=== PATIENT | female | born 1960 | race Caucasian/White ===

== ENCOUNTER → 2017-01-30 | Outpatient (CLI) | payer BC, OTHER ==
[~2017-01-30] MED LIST: ASPI81TA21 PO; ATOR80TA PO; CLOP1TAB15 PO; HYDR25TA4 PO; LISI-729 PO; METFTAB2 PO; METO50TA7 PO; SALI0.6510 INH; SERT50TA PO; SPIR1TAB72 PO; SPIR25TA PO; ZNT/150 PO
[2017-01-30 12:24] LABS: ALT/SGPT 30 U/L (12-78); AST/SGOT 9 U/L (15-37); BLOOD UREA NITROGEN 12 mg/dl (7-18); BUN/CREATININE RATIO 16.2 (10-20); CALCIUM 8.9 mg/dl (8.5-10.1); CARBON DIOXIDE 32 mmol/L (21-32); CHLORIDE 100 mmol/L (98-107); CREATININE 0.72 mg/dl (0.60-1.20); GLUCOSE 133 mg/dl (70-99); POTASSIUM 3.7 mmol/L (3.5-5.1); SODIUM 138 mmol/L (136-145)
[2017-01-30 12:42] LABS: ESTIMATED AVERAGE GLUCOSE 174 mg/dl; HA1C FLAG Normal (Normal)
== END | disposition home or self-care (01) ==
LOC: C.LAB1850 10:28
PROVIDERS: ATTEND Internal Medicine
DX: E11.9 Type 2 diabetes mellitus without complications (principal); E78.5 Hyperlipidemia, unspecified

== ENCOUNTER → 2017-06-25 | Day surgery (SDC) | payer BC, OTHER ==
[2017-06-13 13:55] VITALS: Ht 160 cm; Wt 108.6 kg
[~2017-06-25] VITALS: Ht 160 cm; Wt 108.6 kg
[~2017-06-25] MED LIST changes: -HYDR25TA4 PO; +LIDOCAINE HCL 2% 2 ML VIAL (20MG/ML) ONE; +MIDAZOLAM HCL 1 MG/ML 2ML VIAL ONE; +PROPOFOL IV EMULSION 10 MG/ML 20 ML VIAL IV ONE; -SALI0.6510 INH; +SODIUM CHLORIDE 0.9% 500ML 500 ML IV ONE; -SPIR25TA PO
[2017-06-25 08:17] VITALS: TEMP 36.5
--- NOTE | 2017-06-25 08:31 | Endo History and Physical ---
History & Physical Date of Service: Jun 25, 2017. Chief Complaint: history of polyps Referring Physician: Dr.Jeffrey Giraldo History of Present Illness 56 yo CF who presents for colonoscopy secondary to history of colon polyps. Past Surgical History Hx Cardiac Surgery: Yes (HEART CATH, STENT X1) Hx Internal Defibrillator: No Hx Pacemaker: No Hx Abdominal Surgery: Yes (, LOBITO BSO) Hx of Implantable Prosthesis: No Hx Post-Op Nausea and Vomiting: No Hx Cancer Surgery: No Hx Thoracic Surgery: No Hx Orthopedic: No Hx Urinary Tract Surgery: No Family History Colon CA Social History Smoking Status: Former Smoker Hx Substance Use: No Hx Alcohol Use: Yes (SOCIAL) Allergies Coded Allergies: No Known Allergies (Verified , 06/13/17) Current Medications Reported Home Medications Medications Dose Route/Sig Max Daily Dose Days Date Category Spironolactone/Hydrochlor 25-25 mg (HCTZ/Spironolactone) 1 Ea Tab 1 Tab PO QAM 06/13/17 Reported Zoloft (Sertraline HCl) 50 Mg Tab 50 Mg PO QAM 06/13/17 Reported Zestril (Lisinopril) 5 Mg Tab 5 Mg PO QAM 06/13/17 Reported Plavix (Clopidogrel Bisulfate) 75 Mg Tab 75 Mg PO QAM 06/13/17 Reported Zantac (Ranitidine Hcl) 150 Mg Tab 150 Mg PO BID PRN 09/30/12 Reported Ecotrin Or Generic (Aspirin) 81 Mg Tab 81 Mg PO QPM 09/30/12 Reported Toprol-Xl (Metoprolol Succinate) 50 Mg Tabcr 50 Mg PO QAM 09/30/12 Reported Glucophage Ext Rel (Metformin HCl) 750 Mg Tab 750 Mg PO BID 09/30/12 Reported Lipitor (Atorvastatin Calcium) 80 Mg Tab 80 Mg PO QPM 09/30/12 Reported Vital Signs Weight (Kilograms): 108.64 Height (Feet): 5 Height (Inches): 3 Date Time Temp Pulse Resp B/P (MAP) Pulse Ox O2 Delivery O2 Flow Rate FiO2 06/25/17 08:17 36.5 74 18 131/91 (104) 99 Room Air Physical Exam General Appearance: WD/WN, no apparent distress Respiratory/Chest: Auscultation: breath sounds normal Cardiovascular: Heart Auscultation: RRR Abdomen: Bowel Sounds: normal Inspection & Palpation: soft, non-distended, no tenderness, guarding & rebound Assessment and Plan Assessment: 56 yo CF who presents for colonoscopy secondary to history of colon polyps. Plan: Proceed with colonoscopy.
--- NOTE | 2017-06-25 09:10 | Discharge Instructions ---
Endoscopy Patient Instructions Date / Procedure(s) Performed Jun 25, 2017. Colonoscopy Allergy Information Coded Allergies: No Known Allergies (Verified , 06/13/17) Discharge Date / Findings Jun 25, 2017. Diverticulosis Medication Instructions Stopped Medication(s): stopped Plavix 06/16,ASA 06/21,last dose Metformin Saturday OK to resume all medications today as prescribed Reported Home Medications Medications Dose Route/Sig Max Daily Dose Days Date Category Spironolactone/Hydrochlor 25-25 mg (HCTZ/Spironolactone) 1 Ea Tab 1 Tab PO QAM 06/13/17 Reported Zoloft (Sertraline HCl) 50 Mg Tab 50 Mg PO QAM 06/13/17 Reported Zestril (Lisinopril) 5 Mg Tab 5 Mg PO QAM 06/13/17 Reported Plavix (Clopidogrel Bisulfate) 75 Mg Tab 75 Mg PO QAM 06/13/17 Reported Zantac (Ranitidine Hcl) 150 Mg Tab 150 Mg PO BID PRN 09/30/12 Reported Ecotrin Or Generic (Aspirin) 81 Mg Tab 81 Mg PO QPM 09/30/12 Reported Toprol-Xl (Metoprolol Succinate) 50 Mg Tabcr 50 Mg PO QAM 09/30/12 Reported Glucophage Ext Rel (Metformin HCl) 750 Mg Tab 750 Mg PO BID 09/30/12 Reported Lipitor (Atorvastatin Calcium) 80 Mg Tab 80 Mg PO QPM 09/30/12 Reported Provider Instructions Activity Restrictions - No exercising or heavy lifting for 24 hours. - Do not drink alcohol the day of the procedure. - Do not drive a car or operate machinery until the day after the procedure. - Do not make any important decisions or sign important papers in 24 hours after the procedure. Following Day: - Return to full activity which may include returning to work/school. Diet Start your diet with liquids and light foods (jello, soup, juice, toast). Then eat your usual diet if not nauseated. Treatment For Common After Affects For mild abdominal pain, bloating, or excessive gas: - Rest - Eat lightly - Lie on right side Follow-Up Information Follow-up with Dr.Jeffrey Giraldo as scheduled Anesthesia Information What You Should Know You have had a procedure that required some medicine to reduce anxiety and discomfort. This treatment is called moderate sedation. After receiving the treatment, you may be sleepy, but you will be able to breathe on your own. The effects of the treatment may last for several hours. Follow these instructions along with Activity/Diet recommendations noted above: * Do NOT do anything where dizziness or clumsiness would be dangerous. * Rest quietly at home today, then you can be up and about tomorrow. * Have a responsible person stay with you the rest of today. * You may have had an I.V. today. If so, you may take the dressing off later today. Recommendations Call your doctor if: * Trouble breathing * Continuous vomiting for more than 24 hours * Temperature above 101 degrees * Severe abdominal pain or bloating * Pain not relieved by pain medicine ordered * There is increased drainage or redness from any incision * A large amount of rectal bleeding greater than 2-3 tablespoons. (If you had a polyp/s removed or have hemorrhoids, a small amount of blood - from the rectum is to be expected.) * You have any unanswered questions or concerns. IN THE EVENT OF A SERIOUS EMERGENCY, GO TO THE NEAREST EMERGENCY ROOM Your discharge instructions were prepared by provider Wilmer Francois. Patient Instructions Signature Page Hilda [place] Patient (or Guardian) Signature/Date: I have read and understand the instructions given to me by my caregivers. Caregiver/RN/Doctor Signature/Date: The above-named patient and/or guardian has received patient instructions on this date. + Original Patient Signature Page (only) stays with chart. Please make copy for patient.
--- NOTE | 2017-06-25 09:24 | Anesthesiology Progress Note ---
Anesthesia Post Op Note Date & Time Jun 25, 2017 at 09:24 Vital Signs Pain Intensity: 0 Vital Signs Past 12 Hours Date Time Temp Pulse Resp B/P (MAP) Pulse Ox O2 Delivery O2 Flow Rate FiO2 06/25/17 09:12 75 16 107/79 (88) 97 Room Air 06/25/17 08:58 81 12 120/88 (99) 100 Room Air 06/25/17 08:17 36.5 74 18 131/91 (104) 99 Room Air Notes Mental Status: alert / awake / arousable, participated in evaluation Pt Amnestic to Procedure: Yes Nausea / Vomiting: adequately controlled Pain: adequately controlled Airway Patency, RR, SpO2: stable & adequate BP & HR: stable & adequate Hydration State: stable & adequate Anesthetic Complications: no major complications apparent
[2017-06-25 09:28] VITALS: BP 110/74; PULSE 73; O2SAT 97
--- NOTE | 2017-06-25 09:47 | GI REPORT ---
Procedure Date: 06/25/2017 8:12 AM Procedure: Colonoscopy Indications: High risk colon cancer surveillance: Personal history of colonic polyps, Family history of colon cancer Medicines: Monitored Anesthesia Care Complications: No immediate complications. Estimated Blood Loss: Estimated blood loss: none. Procedure: Pre-Anesthesia Assessment: - Prior to the procedure, a History and Physical was performed, and patient medications and allergies were reviewed. The patient's tolerance of previous anesthesia was also reviewed. The risks and benefits of the procedure and the sedation options and risks were discussed with the patient. All questions were answered, and informed consent was obtained. Prior Anticoagulants: The patient last took aspirin 3 days and Plavix (clopidogrel) 4 days prior to the procedure. ASA Grade Assessment: III - A patient with severe systemic disease. After reviewing the risks and benefits, the patient was deemed in satisfactory condition to undergo the procedure. After I obtained informed consent, the scope was passed under direct vision. Throughout the procedure, the patient's blood pressure, pulse, and oxygen saturations were monitored continuously. The Scope was introduced through the anus and advanced to the terminal ileum. The colonoscopy was performed without difficulty. The patient tolerated the procedure well. The quality of the bowel preparation was good. The terminal ileum, ileocecal valve, appendiceal orifice, and rectum were photographed. Findings: Multiple small-mouthed diverticula were found in the sigmoid colon. The exam was otherwise without abnormality. Impression: - Diverticulosis in the sigmoid colon. - The examination was otherwise normal. - No specimens collected. Recommendation: - Resume previous diet. - Continue present medications. - Repeat colonoscopy in 5 years for surveillance. - Return to primary care physician as previously scheduled. Wilmer Francois DO 06/25/2017 9:26:14 AM This report has been signed electronically. Note Initiated On: 06/25/2017 8:12 AM I attest to the content of the Intraoperative Record and orders documented therein, exceptions below
== END | disposition home or self-care (01) ==
LOC: C.GI 07:59
PROVIDERS: ATTEND Internal Medicine
DX: Z12.11 Encounter for screening for malignant neoplasm of colon (principal); K57.30 Diverticulosis of large intestine without perforation or abscess without bleeding; Z86.010 Personal history of colon polyps; Z80.0 Family history of malignant neoplasm of digestive organs; Z87.891 Personal history of nicotine dependence; Z79.02 Long term (current) use of antithrombotics/antiplatelets; Z79.899 Other long term (current) drug therapy

== ENCOUNTER → 2017-08-02 | Outpatient (CLI) | payer BC, OTHER ==
[~2017-08-02] MED LIST changes: -LIDOCAINE HCL 2% 2 ML VIAL (20MG/ML) ONE; -MIDAZOLAM HCL 1 MG/ML 2ML VIAL ONE; -PROPOFOL IV EMULSION 10 MG/ML 20 ML VIAL IV ONE; -SODIUM CHLORIDE 0.9% 500ML 500 ML IV ONE
--- NOTE | 2017-08-02 16:09 | MAMMOGRAPHY REPORT ---
BILATERAL DIGITAL SCREENING MAMMOGRAM TOMOSYNTHESIS WITH CAD: 08/02/2017 CLINICAL HISTORY: Routine screening. Patient has no complaints. TECHNIQUE: Breast tomosynthesis in addition to standard 2D mammography was performed. Current study was also evaluated with a Computer Aided Detection (CAD) system. COMPARISON: Comparison is made to exams dated: 08/01/2016 mammogram, 07/08/2015 mammogram, 07/07/2014 m ammogram, 05/18/2013 mammogram, 05/01/2012 mammogram, and 04/25/2011 mammogram - [facility]. BREAST COMPOSITION: There are scattered areas of fibroglandular density in both breasts. FINDINGS: No suspicious masses, calcifications, or areas of architectural distortion are noted in ei ther breast. There has been no significant interval change compared to prior exams. IMPRESSION: ACR BI-RADS CATEGORY 1: NEGATIVE There is no mammographic evidence of malignancy. A 1 year screening mammogram is recommended. The pa tient will receive written notification of the results. Approximately 10% of breast cancers are not detected with mammography. A negative mammographic report should not delay biopsy if a clinically suggestive mass is present. Halie Sow M.D. /:08/02/2017 15:11:36 Keysmith: Livier Flores [facility] letter sent: Normal 1/2 BI-RADS Code: ACR BI-RADS Category 1: Negative
== END | disposition home or self-care (01) ==
LOC: C.MAMM 14:12
PROVIDERS: ATTEND Internal Medicine
DX: Z12.31 Encounter for screening mammogram for malignant neoplasm of breast (principal)

== ENCOUNTER → 2017-09-15 | Outpatient (CLI) | payer BC, OTHER ==
--- NOTE | 2017-09-15 14:53 | DIAGNOSTIC IMAGING REPORT ---
CHEST 2 VIEWS ROUTINE CLINICAL HISTORY: BILATERAL RALES cough. Dyspnea. COMPARISON STUDY: 04/18/2009 FINDINGS: Parenchymal infiltrate left lung base. Lungs otherwise appear clear. No evidence for cardiac enlargement. Diaphragms smooth. IMPRESSION: Infiltrate left base. The above report was generated using voice recognition software. It may contain grammatical, syntax or spelling errors. Electronically signed by: Wally Shea M.D. 09/15/2017 2:51 PM Dictated Date/Time: 09/15/2017 2:51 PM
== END | disposition home or self-care (01) ==
LOC: C.RAD 14:36
PROVIDERS: ATTEND Family Medicine
DX: R09.89 Other specified symptoms and signs involving the circulatory and respiratory systems (principal)

== ENCOUNTER 2021-06-26 06:47 | Inpatient (IN) ==
--- NOTE | 2021-06-26 07:10 | Emergency Department Note ---
History of Present Illness General Chief complaint: Facial Injury/Pain Stated complaint: FACIAL SWELLING,VOMITING Time Seen by Provider: 06/26/21 07:00 History of Present Illness Maximum Pain Intensity: 7 This is a 60-year-old female that presents to the emergency department via private vehicle with complaints of "facial swelling/pain, vomiting". Patient states that this past she underwent right posterior inferior molar region root canal by Dr. Ambrocio in [facility]. Patient notes that once the local anesthetic began to wear off her pain sharply increased. Pain then increased into this past Saturday. She did take some pain medication that was she was previously prescribed and notes some pain relief with this. Then she notes that she felt a lump in the right cheek starting Saturday. Saturday morning the swelling worsened and has progressed with some more redness, swelling, pain and now vomiting this morning. She last ate food around 12:30 PM yesterday. She notes a history of type 2 diabetes as well as coronary artery stent placement currently on Eliquis as well as recent cardiac ablation. Patient rates current pain is a 7/10. She respectfully declines pain medication at this time. She denies any current nausea and is feeling a bit better. Emma kriss notes that she currently is on penicillin that was prescribed to her yesterday at an urgent care for this suspected infection. She had a dose yesterday and attempted to take a dose today but notes that she then vomited. She is prescribed penicillin, 500 mg p.o. twice daily. Home Medications Medication Instructions Recorded Confirmed Type ascorbic acid (vitamin C) 500 mg 500 mg PO QAM tab 05/25/20 06/26/21 History tablet aspirin 81 mg tablet,delayed 81 mg PO HS 11/17/20 06/26/21 History release atorvastatin 80 mg tablet 80 mg PO HS 11/17/20 06/26/21 History cholecalciferol (vitamin D3) 25 50 mcg PO HS 11/17/20 06/26/21 History mcg (1,000 unit) capsule (Vitamin D3) magnesium oxide 400 mg PO HS 11/17/20 06/26/21 History amiodarone 200 mg tablet 200 mg PO DAILY #90 tab 12/07/20 06/26/21 Rx lisinopril 5 mg tablet 5 mg PO DAILY PRN 01/05/21 06/26/21 History metoprolol succinate 100 mg 100 mg PO BID #180 tab 02/07/21 06/26/21 Rx tablet,extended release 24 hr apixaban 5 mg tablet (Eliquis) 5 mg PO BID #60 tab 06/13/21 06/26/21 Rx spironolactone 25 1 tab PO QAM #90 tab 06/13/21 06/26/21 Rx mg-hydrochlorothiazide 25 mg tablet sertraline 50 mg tablet 100 mg PO .COMPLEX #180 tab 06/19/21 06/26/21 Rx dulaglutide 1.5 mg/0.5 mL 1.5 mg SUBCUT SA 06/26/21 06/26/21 History subcutaneous pen injector (Trulicity) vitamin A acetate 10,000 unit 10,000 unit PO HS 06/26/21 06/26/21 History sublingual tablet zinc acetate 50 mg (zinc) capsule 50 mg PO HS 06/26/21 06/26/21 History Allergies Allergy/AdvReac Type Severity Reaction Status Date / Time No Known Drug Allergies Allergy Verified 06/26/21 07:29 Past Med/Surg History Medical History (Updated 06/26/21 @ 11:55 by Julian El MD) Atherosclerosis of [place] coronary artery without angina pectoris Benign colonic polyp Diverticulosis Hyperlipidemia Hypertension Type 2 diabetes mellitus Surgical History H/O: section H/O: hysterectomy History of coronary artery stent placement Family History Mother Myocardial infarction Diabetes Hypertension Kidney disease Uncle Colon cancer Father Cerebral aneurysm Other Benign adenomatous polyp of large intestine Denies family history of Ovarian cancer Prostate cancer Breast cancer Social History Smoking Status: Never smoker Tobacco Type: Cigarettes Age Started Using Tobacco: 33; Age Quit Using Tobacco: 49; Years Smoked: 16; Cigarettes Per Day: 15; Number of Years Since Quit: 11; Second Hand Exposure: No; Hx Alcohol Use: Yes Hx Substance Use: No marital status: Current Living Situation: Spouse current occupational status: employed Feels Safe at Home: Yes Childhood Exposure to Second-Hand Smoke: Yes Dental Care, Regularly: Yes Physical Activity Frequency: Does not Exercise Seatbelt Use: always Sunscreen Use: Yes Review of Systems A total of 10 systems reviewed and were otherwise negative Physical Exam Vital Signs Vital Signs - 24 hr 06/26/21 06:51 06/26/21 08:34 06/26/21 09:46 Temperature 37 C Temperature Source Temporal Artery Scan Pulse Rate 65 Pulse Rate [Finger] 66 62 Respiratory Rate 16 18 18 Blood Pressure 125/64 Blood Pressure [Left Arm] 126/64 105/45 L Blood Pressure Mean 84 Blood Pressure Mean [Left Arm] 84 65 Pulse Oximetry 97 95 94 Oxygen Delivery Method Room Air Room Air Sepsis Recent Fever Within 48 Hours No Sepsis New/Unexplained Change in Mental Status No Sepsis Action Taken by Nursing No Action Required 06/26/21 11:16 Temperature Temperature Source Pulse Rate Pulse Rate [Finger] 70 Respiratory Rate 18 Blood Pressure Blood Pressure [Left Arm] 108/83 Blood Pressure Mean Blood Pressure Mean [Left Arm] 91 Pulse Oximetry 97 Oxygen Delivery Method Room Air Sepsis Recent Fever Within 48 Hours Sepsis New/Unexplained Change in Mental Status Sepsis Action Taken by Nursing VITAL SIGNS - Vital signs and nursing notes were reviewed. Stable and afebrile. GENERAL - 60-year-old female appearing her stated age who is in no acute distress. Communicates well with provider and answers questions appropriately. SKIN -there is mild erythema noted overlying the right lower facial region overlying the chin with surrounding edema. HEAD - NC/AT. EYES - PERRL with EOMI bilaterally. Sclera anicteric. EARS - No deformities of external structures noted on gross examination bilat erally. No pain elicited with palpation of the tragus bilaterally. External auditory canals without discharge or otorrhea. Tympanic membranes pearly ruiz without retraction or bulging. No fluid or purulent material visualized behind the TM. Handle of malleus, umbo, cone of light, pars tensa/flaccid all easily visualized. NOSE - Midline and without cyanosis. No epistaxis or purulent drainage noted. Septum midline without deviation or septal hematoma noted. MOUTH/OROPHARYNX - Without perioral cyanosis. Buccal mucosa pink and moist and without leukoplakia. Tongue midline with equal elevation of palate bilaterally. No tonsillar hypertrophy, erythema, or exudates noted. Good dentition noted. Tooth #31 reveals recent filling placement, no drainage. NECK - Neck with FROM. Supple to palpation. No lymphadenopathy noted. No nuchal rigidity. LUNGS - Chest wall symmetric without accessory muscle use, intercostals retractions, or central cyanosis. Normal vesicular breath sounds CTA B/L. No wheezes, rales, or rhonchi appreciated. CARDIAC - RRR with S1/S2. No murmur, rubs, or gallops appreciated. EXTREMITIES - No clubbing or peripheral cyanosis. NEUROLOGIC - Cranial nerves II through XII grossly intact. PSYCH - A&O, and cooperates fully with examiner. Pt is very pleasant and interacts well with examiner. Course Administered Medications Ampicillin Sodium/Sulbactam Sodium 3,000 mg/ Sodium Chloride 108 mls @ 200 mls/hr IV Q6H ALEXX; Protocol Stop: 07/03/21 12:08 Last Admin: 06/26/21 12:50 Dose: Not Given Documented by: [id number] Morphine Sulfate (Morphine Sulfate 4 Mg/Ml 1 Ml Carp\\Vial) 4 mg IV Q30M PRN PRN Reason: Pain Stop: 07/10/21 11:28 Last Admin: 06/26/21 12:54 Dose: 4 mg Documented by: [id number] Admin: 06/26/21 11:37 Dose: 4 mg Documented by: [id number] Discontinued Medications Heparin Sodium/Dextrose (Heparin Iv Adult Wt-Based Standard *No* Bolus Protocol) 1 ea N/A NOW STA; Protocol Stop: 06/26/21 12:10 Last Admin: 06/26/21 12:47 Dose: Not Given Documented by: [id number] Heparin Sodium/Dextrose (Heparin 86819 Unit/500 Ml D5w) Confirm Administered Dose 25,000 units IV .STK-MED ONE Stop: 06/26/21 12:40 Last Admin: 06/26/21 12:46 Dose: 1,350 units Documented by: [id number] Cosigned by: [id number] Sodium Chloride (Nss 1000ml) 500 mls @ 999 mls/hr IV .Q31M ONE Stop: 06/26/21 09:31 Last Infusion: 06/26/21 09:47 Dose: 0 mls/hr Documented by: [id number] Admin: 06/26/21 09:23 Dose: 999 mls/hr Documented by: [id number] Ampicillin Sodium/Sulbactam Sodium 3,000 mg/ Sodium Chloride 108 mls @ 200 mls/hr IV NOW STA; Protocol Stop: 06/26/21 11:20 Last Infusion: 06/26/21 11:39 Dose: 0 mls/hr Documented by: [id number] Admin: 06/26/21 11:15 Dose: 200 mls/hr Documented by: [id number] Ioversol (Optiray 320 100ml) 94 ml IV ONCE ONE Stop: 06/26/21 08:04 Last Admin: 06/26/21 08:04 Dose: 94 ml Documented by: [id number] Morphine Sulfate (Morphine Sulfate 4 Mg/Ml 1 Ml Carp\\Vial) 4 mg IV NOW STA Stop: 06/26/21 09:00 Last Admin: 06/26/21 09:23 Dose: 4 mg Documented by: [id number] Ondansetron HCl (Ondansetron Inj 2 Mg/Ml 2 Ml Vial) 4 mg IV NOW STA Stop: 06/26/21 09:00 Last Admin: 06/26/21 09:23 Dose: 4 mg Documented by: [id number] Medical Decision Making Laboratory Data Result diagrams: 06/26/21 07:30 06/26/21 07:30 Lab Results 06/26/21 06/26/21 06/26/21 Range/Units 07:30 07:30 11:16 WBC 11.05 H (4.8-10.8) K/uL RBC 4.00 L (4.2-5.4) M/uL Hgb 12.9 (12.0-16.0) g/dL Hct 38.3 (37-47) % MCV 95.8 (80-100) fL MCH 32.3 (25-34) pg MCHC 33.7 (32-36) g/dL RDW Std Deviation 42.3 (36.4-46.3) fL RDW Coeff of Jeyson 12.0 (11.5-14.5) % Plt Count 239 (130-400) K/uL MPV 11.8 H (7.4-10.4) fL Immature Gran % (Auto) 0.2 % Neut % (Auto) 77.9 % Lymph % (Auto) 14.0 % [place] % (Auto) 7.6 % Eos % (Auto) 0.3 % Baso % (Auto) 0.0 % Neut # (Auto) 8.61 H (1.4-6.5) K/uL Lymph # (Auto) 1.55 (1.2-3.4) K/uL [place] # (Auto) 0.84 H (0.11-0.59) K/uL Eos # (Auto) 0.03 (0-0.5) K/uL Baso # (Auto) 0.00 (0-0.2) K/uL Immature Gran # (Auto) 0.02 (0.00-0.02) K/uL Sodium 134 L (136-145) mmol/L Potassium 4.5 (3.5-5.1) mmol/L Chloride 101 (98-107) mmol/L Carbon Dioxide 27 (21-32) mmol/L Anion Gap 7.0 (3-11) BUN 18 (7-18) mg/dl Creatinine 1.05 (0.6-1.2) mg/dl Est Cr Clr Drug Dosing 68.4 ml/min Est GFR ( Amer) 67.3 ml/min Est GFR (Non-Af Amer) 58.1 ml/min BUN/Creatinine Ratio 17.5 (10-20) Glucose 190 H (70-99) mg/dl Calcium 9.1 (8.5-10.1) mg/dl Total Bilirubin 0.5 (0.2-1) mg/dl AST 25 (15-37) U/L ALT 41 (12-78) U/L Alkaline Phosphatase 101 (45-117) U/L Total Protein 7.6 (6.4-8.2) gm/dl Albumin 3.4 (3.4-5.0) gm/dl Globulin 4.2 H (2.5-4.0) gm/dl Albumin/Globulin Ratio 0.8 L (0.9-2) COVID-19 Eval Order Covid19 at [facility] SARS-CoV-2 (PCR) (Negative) 06/26/21 Range/Units 11:16 WBC (4.8-10.8) K/uL RBC (4.2-5.4) M/uL Hgb (12.0-16.0) g/dL Hct (37-47) % MCV (80-100) fL MCH (25-34) pg MCHC (32-36) g/dL RDW Std Deviation (36.4-46.3) fL RDW Coeff of Jeyson (11.5-14.5) % Plt Count (130-400) K/uL MPV (7.4-10.4) fL Immature Gran % (Auto) % Neut % (Auto) % Lymph % (Auto) % [place] % (Auto) % Eos % (Auto) % Baso % (Auto) % Neut # (Auto) (1.4-6.5) K/uL Lymph # (Auto) (1.2-3.4) K/uL [place] # (Auto) (0.11-0.59) K/uL Eos # (Auto) (0-0.5) K/uL Baso # (Auto) (0-0.2) K/uL Immature Gran # (Auto) (0.00-0.02) K/uL Sodium (136-145) mmol/L Potassium (3.5-5.1) mmol/L Chloride (98-107) mmol/L Carbon Dioxide (21-32) mmol/L Anion Gap (3-11) BUN (7-18) mg/dl Creatinine (0.6-1.2) mg/dl Est Cr Clr Drug Dosing ml/min Est GFR ( Amer) ml/min Est GFR (Non-Af Amer) ml/min BUN/Creatinine Ratio (10-20) Glucose (70-99) mg/dl Calcium (8.5-10.1) mg/dl Total Bilirubin (0.2-1) mg/dl AST (15-37) U/L ALT (12-78) U/L Alkaline Phosphatase (45-117) U/L Total Protein (6.4-8.2) gm/dl Albumin (3.4-5.0) gm/dl Globulin (2.5-4.0) gm/dl Albumin/Globulin Ratio (0.9-2) COVID-19 Eval Order SARS-CoV-2 (PCR) NEGATIVE (Negative) Imaging Data Radiologist's Impression: Soft Tissue Neck CT 06/26/21 07:08 CT soft tissue neck w con CT DOSE: 555.81 mGy.cm CLINICAL HISTORY: Root canal day, now facial edema, erythema TECHNIQUE: Helical images were acquired during intravenous administration of cc of Optiray. A dose lowering technique was utilized adhering to the principles of ALARA. COMPARISON STUDY: None. FINDINGS: The visualized portions of the lung apices are unremarkable. Normal-sized thyroid gland. Few areas of minimally decreased attenuation is seen within inferior aspect of the right and left thyroid lobe, largest is measuring 7 mm in size and seen on the right. No salivary gland masses are visualized. Multiple cervical lymph nodes are seen, not significantly enlarged. There is mild asymmetrical soft tissue edema is seen overlying right aspect of the mandible with focal area of enhancement (3/195) which might represent developing abscess. There is no evidence of airway compromise. Prominent lingular tonsil is seen. There are multiple screws which seen at the right and left lateral aspect of the mandible. Beam hardening artifact from dental implants are seen bilaterally which limits evaluation. There is metallic density within the anatomical region of the first molar tooth of the right maxilla which is extending to the right maxillary sinus. Almost complete opacification of the right maxillary sinus is seen. There is also thickening and irregularity of the anterior and lateral wall of the right maxillary sinus. IMPRESSION: 1. There is diffuse edema of the soft tissue overlying right aspect of the mandible with focal area of enhancement which could represent abscess formation. 2. Metallic dental hardware within right maxillary first molar which is extending to the right maxillary sinus and associated with its incomplete opacification. Deformity of anterior and lateral wall of the right maxillary sinus also associated with osseous remodeling might represent sequela from prior fracture and chronic sinusitis. Please correlate above-mentioned findings with prior history. ACT 112: Negative or not required by law. The above report was generated using voice recognition software. It may contain grammatical, syntax or spelling errors. Electronically signed by: Imelda Browning DO 06/26/2021 9:05 AM MDM Narrative Patient was seen and evaluated as above in room C06. Review was performed of nursing notes and vital signs. I did review pertinent previous visits and patient history. After obtaining a thorough history and physical examination the above work up was performed. Patient presents to us today status post dental procedure that occurred this now with right-sided facial swelling, pain, redness and began with vomiting this morning. She was seen at an urgent care yesterday and started on penicillin. She notes this is 500 mg p.o. twice daily. First dose yesterday. She tried taking a dose this morning but vomited this back up. On presentation the patient clinically does appear overall well but does certainly have edema and erythema noted to the right inferior facial region/right cheek that extends into the neck. Vital signs stable. She is afebrile. She was offered analgesics and respectfully declined on arrival. No current nausea. Options of care were discussed with the patient. IV access was established. Labs were drawn. I discussed benefit versus risk of CT scan with the patient. Through shared decision making we will proceed. CT scan of the neck was obtained. It is felt that the benefit outweighs the risk. CT scan results as above. There is diffuse edema of the soft tissue overlying the right aspect of the mandible with focal area of enhancement which could represent abscess formation. There is also commend of "Metallic dental hardware within right maxillary first molar which is extending to the right maxillary sinus and as sociated with its incomplete opacification. Deformity of anterior and lateral wall of the right maxillary sinus also associated with osseous remodeling might represent sequela from prior fracture and chronic sinusitis.". Dr. Morgan came to see the patient at bedside. Plan is for admission to medicine service, hold the anticoagulant and then surgery here in the hospital to remove the involved tooth. Patient happy with this plan. Case discussed with the hospitalist. Please refer to further documentation regarding her stay. GCS: 15 In the evaluation and treatment of this patient, the following differential diagnoses were considered: Periapical Abscess, Osteonecrosis of the Jaw, Dental Fracture, Dental Caries, Dalton's Angina, Vincent's Angina, Facial Cellulitis, among others. Impression & Plan Facial edema, Right facial pain, History of recent dental procedure, Emesis Discharge Plan Visit Data Chief Complaint: Facial Injury/Pain Stated Complaint: FACIAL SWELLING,VOMITING ED Provider: Kevin Ji ED Midlevel Provider: Ramírez Morrow Discharge Problem: Facial edema, Right facial pain, History of recent dental procedure, Emesis Patient Disposition: Admitted As Inpatient Condition: Good Discharge Instructions Interventions: ED Discharge Assessment Last Done: 06/26/21 14:54
[2021-06-26 07:40] LABS: Eosinophils # (auto) 0.03 K/uL (0-0.5); Eosinophils % (auto) 0.3 %; Hematocrit (blood only) 38.3 % (37-47); Hemoglobin 12.9 g/dL (12.0-16.0); Immature Granulocytes # (auto) 0.02 K/uL (0.00-0.02); Immature Granulocytes % (auto) 0.2 %; Lymphocytes # (auto) 1.55 K/uL (1.2-3.4); Mean Corpuscular Hemoglobin 32.3 pg (25-34); Mean Corpuscular Hgb Conc 33.7 g/dL (32-36); Mean Corpuscular Volume 95.8 fL (80-100); Mean Platelet Volume 11.8 fL (7.4-10.4); Monocytes # (auto) 0.84 K/uL (0.11-0.59); Monocytes % (auto) 7.6 %; Neutrophils # (auto) 8.61 K/uL (1.4-6.5); Neutrophils % (auto) 77.9 %; Platelet Count 239 K/uL (130-400); RDW Standard Deviation 42.3 fL (36.4-46.3); White Blood Count 11.05 K/uL (4.8-10.8)
[2021-06-26 07:57] LABS: Albumin Level 3.4 gm/dl (3.4-5.0); BUN Creatinine Ratio 17.5 (10-20); Calcium 9.1 mg/dl (8.5-10.1); Creatinine Clr Calc Pharmacy 68.4 ml/min; Est GFR (African American) 67.3 ml/min; Est GFR (Non-African American) 58.1 ml/min; Potassium 4.5 mmol/L (3.5-5.1)
[2021-06-26 08:00] LABS: Albumin Globulin Ratio 0.8 (0.9-2); Bilirubin,Total 0.5 mg/dl (0.2-1); Globulin 4.2 gm/dl (2.5-4.0); Total Protein 7.6 gm/dl (6.4-8.2)
[2021-06-26] MEDS ORDERED: OPTIRAY 320 100ml IV ONE (08:03)
[2021-06-26] MEDS ORDERED: MoRPHine SULFATE 4 MG/ML 1 ML CARP\\VIAL IV STA (08:59)
[2021-06-26] MEDS ORDERED: ONDANSETRON INJ 2 MG/ML 2 ML VIAL IV STA (08:59)
[2021-06-26] MEDS ORDERED: SODIUM CHLORIDE 0.9% 1000ML 500 ML IV ONE (09:01)
--- NOTE | 2021-06-26 09:06 | CT Scan Report ---
CT soft tissue neck w con CT DOSE: 555.81 mGy.cm CLINICAL HISTORY: Root canal day, now facial edema, erythema TECHNIQUE: Helical images were acquired during intravenous administration of cc of Optiray. A dose l owering technique was utilized adhering to the principles of ALARA. COMPARISON STUDY: None. FINDINGS: The visualized portions of the lung apices are unremarkable. Normal-sized thyroid gland. Few areas of minimally decreased attenuation is seen within inferior aspe ct of the right and left thyroid lobe, largest is measuring 7 mm in size and seen on the right. No salivary gland masses are visualized. Multiple cervical lymph nodes are seen, not significantly enlarged. There is mild asymmetrical soft tissue edema is seen overlying right aspect of the mandible with foca l area of enhancement (3/195) which might represent developing abscess. There is no evidence of airway compromise. Prominent lingular tonsil is seen. There are multiple screws which seen at the right and left lateral aspect of the mandible. Beam hardening artifact from dental implants are seen bilaterally which limits evaluation. There is metallic density within the anatomical region of the first molar tooth of the right maxilla which is extending to the right maxillary sinus. Almost complete opacification of the right maxillary sinus is seen. There is also thickening and irregularity of the anterior and lateral wall of the rig ht maxillary sinus. IMPRESSION: 1. There is diffuse edema of the soft tissue overlying right aspect of the mandible with focal area of enhancement which could represent abscess formation. 2. Metallic dental hardware within right maxillary first molar which is extending to the right maxil dorothy sinus and associated with its incomplete opacification. Deformity of anterior and lateral wall o f the right maxillary sinus also associated with osseous remodeling might represent sequela from prio r fracture and chronic sinusitis. Please correlate above-mentioned findings with prior history. ACT 112: Negative or not required by law. The above report was generated using voice recognition software. It may contain grammatical, syntax o r spelling errors. Electronically signed by: Imelda Browning DO 06/26/2021 9:05 AM
[2021-06-26] MEDS ORDERED: AMPICILLIN/SULBACTAM SOD 3,000 MG in 0.9 % SODIUM CHLORIDE 100 ML IV STA (10:48)
--- NOTE | 2021-06-26 11:29 | History & Physical Report ---
Date of Service June 26, 2021 Assessment & Plan (1) Odontogenic infection of jaw: Plan: Hilda North is a 60-year-old female with a past medical history of paroxysmal atrial fibrillation, hypertension, hyperlipidemia who presents with a odontogenic infection of the right lower jaw following root canal of tooth #29. Case has been discussed with Dr. Morgan, patient is being admitted for antibiotic treatment pending source control. Odontogenic infection, right lower jaw Patient with root canal June 22 of tooth #29 and subsequent pain, swelling, and chills CT: There is diffuse edema of the soft tissue overlying right aspect of the mandible with focal area of enhancement which could represent abscess formation. Metallic dental hardware within right maxillary first molar which is extending to the right maxillary sinus and associated with its incomplete opacification. Deformity of anterior and lateral wall of the right maxillary sinus also associated with osseous remodeling might represent sequela from prior fracture and chronic sinusitis. -Unasyn 3 g every 6 hours No signs of airway compromise Dr. Morgan oromaxillofacial surgery consulted, case discussed at time of admission. Anticipate source control with drainage following DOAC hold. On heparin as below while DOAC held for A. fib N.p.o. at midnight, liquid diet at this time Pain control with Tylenol, scaled morphine 2-4 mg every 4 hours as needed (2) Hyperlipidemia: Plan: Continue atorvastatin 80 mg p.o. nightly (3) Hypertension: Plan: Normotensive at time of admission. Home antihypertensives held pending potential surgical intervention Aspirin held x1 pending potential neck abscess drainage (4) Type 2 diabetes mellitus: Plan: Home Trulicity held Last A1c approximately 8% SSI goal 1001 40, correction factor 50, ratio 15 (5) PAF (paroxysmal atrial fibrillation): Plan: Apixaban held pending potential neck abscess drainage Heparin GTT while apixaban held Patient in sinus rhythm at time of assessment, hemodynamically stable (6) DVT prophylaxis: Plan: DVT prophylaxis: On heparin as above Diet: N.p.o. at midnight, liquid diet. NSS 100 cc/h while n.p.o. Dispo: Medical/surgical CODE STATUS: Full code History of Present Illness Chief Complaint: Right jaw pain Primary Care Provider: Natan Giraldo MD Hilda is here for right jaw and neck pain following wisdom tooth extraction. She reports she had root canal of her right lower jaw, tooth #29. The next day she started to feel unwell and Saturday she developed Sat R cheek lump and lip swelling. Went to acute care (couldn't get call back from dentist) and was put on penicillin twice daily. She reports the pain and swelling continue to increase over the weekend and evening. This morning vomiting, and increased pain and presented to the ER. +Chills x1 days, not sure if he has been febrile. Pain at admission 8/10, achy in jaw no radiation without palpation. Denies voice change, difficulty breathing, wheezing. Has not taken any medications this morning, last took Saturday night. Reports she has had an ablation for A. fib which she is in and out of, but believes she is normally with a regular rhythm. Denies other recent illnesses. Case discussed with maxillofacial surgery Dr. Morgan. CT as follows: There is diffuse edema of the soft tissue overlying right aspect of the mandible with focal area of enhancement which could represent abscess formation. Metallic dental hardware within right maxillary first molar which is extending to the right maxillary sinus and associated with its incomplete opacification. Defo rmity of anterior and lateral wall of the right maxillary sinus also associated with osseous remodeling might represent sequela from prior fracture and chronic sinusitis. Medical History: Reviewed Medications: Reviewed Surgical History: Reviewed Allergies: Reviewed Social History: Reviewed Code Status: Full code, discussed with patient with at bedside. Allergies Allergy/AdvReac Type Severity Reaction Status Date / Time No Known Drug Allergies Allergy Verified 06/26/21 07:29 Home Medications Medication Instructions Recorded Confirmed Type ascorbic acid (vitamin C) 500 mg 500 mg PO QAM tab 05/25/20 06/26/21 History tablet aspirin 81 mg tablet,delayed 81 mg PO HS 11/17/20 06/26/21 History release atorvastatin 80 mg tablet 80 mg PO HS 11/17/20 06/26/21 History cholecalciferol (vitamin D3) 25 50 mcg PO HS 11/17/20 06/26/21 History mcg (1,000 unit) capsule (Vitamin D3) magnesium oxide 400 mg PO HS 11/17/20 06/26/21 History amiodarone 200 mg tablet 200 mg PO DAILY #90 tab 12/07/20 06/26/21 Rx lisinopril 5 mg tablet 5 mg PO DAILY PRN 01/05/21 06/26/21 History metoprolol succinate 100 mg 100 mg PO BID #180 tab 02/07/21 06/26/21 Rx tablet,extended release 24 hr apixaban 5 mg tablet (Eliquis) 5 mg PO BID #60 tab 06/13/21 06/26/21 Rx spironolactone 25 1 tab PO QAM #90 tab 06/13/21 06/26/21 Rx mg-hydrochlorothiazide 25 mg tablet sertraline 50 mg tablet 100 mg PO .COMPLEX #180 tab 06/19/21 06/26/21 Rx dulaglutide 1.5 mg/0.5 mL 1.5 mg SUBCUT SA 06/26/21 06/26/21 History subcutaneous pen injector (Trulicity) vitamin A acetate 10,000 unit 10,000 unit PO HS 06/26/21 06/26/21 History sublingual tablet zinc acetate 50 mg (zinc) capsule 50 mg PO HS 06/26/21 06/26/21 History Past Med/Surg History Medical History (Updated 06/26/21 @ 11:55 by Julian El MD) Atherosclerosis of [place] coronary artery without angina pectoris Benign colonic polyp Diverticulosis Hyperlipidemia Hypertension Type 2 diabetes mellitus Surgical History H/O: section H/O: hysterectomy History of coronary artery stent placement Family History Mother Myocardial infarction Diabetes Hypertension Kidney disease Uncle Colon cancer Father Cerebral aneurysm Other Benign adenomatous polyp of large intestine Denies family history of Ovarian cancer Prostate cancer Breast cancer Social History Smoking Status: Never smoker Tobacco Type: Cigarettes Age Started Using Tobacco: 33; Age Quit Using Tobacco: 49; Years Smoked: 16; Cigarettes Per Day: 15; Number of Years Since Quit: 11; Second Hand Exposure: No; Hx Alcohol Use: Yes Hx Substance Use: No marital status: Current Living Situation: Spouse current occupational status: employed Feels Safe at Home: Yes Childhood Exposure to Second-Hand Smoke: Yes Dental Care, Regularly: Yes Physical Activity Frequency: Does not Exercise Seatbelt Use: always Sunscreen Use: Yes Review of Systems Review of Systems: Constitutional: See HPI Eyes: Denies double vision, vision change, eye pain ENT: See HPI Cardiovascular: Denies Chest pain, chest pressure, palpitations, extremity swelling Respiratory: Denies shortness of breath, cough, sputum production, difficulty breathing Gastrointestinal: Denies abdominal pain, nausea, vomiting, constipation, diarrhea Genitourinary: Denies pain with urination, urinary urgency, urinary frequency Musculoskeletal: Denies weakness, muscle aches/pain, joint aches/pain Integumentary:Denies rash, lesions, bruising Neurological: Denies headache, numbness, tingling, focal weakness Physical Exam Physical Exam: General: A&Ox3. NAD. Cooperative. HEENT: Right lower jaw and upper right neck zone 2 tender to palpation with overlying swelling. No maxillary tenderness bilaterally, no swelling at the level of the clavicle bilaterally. Unable to assess clavicular adenopathy. Uvula midline. No overt pus seen from the gumline, right lower gum swelling appreciated. Pulm: CTAB A&P. -wheezes, -rales, -rhonchi. Symmetrical chest rise. No increase work of breathing. No respiratory distress. Cardiac: RRR, -mrg. Radial pulses intact and symmetrical. Abdominal: Nontender, nondistended, soft. BS present. Extremities: [employer] strength, ankle plantarflexion/dorsiflexion, hip flexion 5/5 bilaterally without asymmetry. Radial and PT pulses intact without asymmetry. Sensation to soft touch intact in fingers and toes without asymmetry. Results & Data Results & Data ([facility]) Vital Signs (Past 12 Hours) Vital Signs Temp Pulse Pulse Resp BP BP Pulse Ox 06/26/21 11:16 70 18 108/83 97 06/26/21 09:46 62 18 105/45 L 94 06/26/21 08:34 66 18 126/64 95 06/26/21 06:51 37 C 65 16 125/64 97 Laboratory Results Abnormal lab results 06/26/21 06/26/21 Range/Units 07:30 07:30 WBC 11.05 H (4.8-10.8) K/uL RBC 4.00 L (4.2-5.4) M/uL MPV 11.8 H (7.4-10.4) fL Neut # (Auto) 8.61 H (1.4-6.5) K/uL [place] # (Auto) 0.84 H (0.11-0.59) K/uL Sodium 134 L (136-145) mmol/L Glucose 190 H (70-99) mg/dl Globulin 4.2 H (2.5-4.0) gm/dl Albumin/Globulin Ratio 0.8 L (0.9-2) Diagnostic Findings Soft Tissue Neck CT 06/26/21 07:08 CT soft tissue neck w con CT DOSE: 555.81 mGy.cm CLINICAL HISTORY: Root canal , now facial edema, erythema TECHNIQUE: Helical images were acquired during intravenous administration of cc of Optiray. A dose lowering technique was utilized adhering to the principles of ALARA. COMPARISON STUDY: None. FINDINGS: The visualized portions of the lung apices are unremarkable. Normal-sized thyroid gland. Few areas of minimally decreased attenuation is seen within inferior aspect of the right and left thyroid lobe, largest is measuring 7 mm in size and seen on the right. No salivary gland masses are visualized. Multiple cervical lymph nodes are seen, not significantly enlarged. There is mild asymmetrical soft tissue edema is seen overlying right aspect of the mandible with focal area of enhancement (3/195) which might represent developing abscess. There is no evidence of airway compromise. Prominent lingular tonsil is seen. There are multiple screws which seen at the right and left lateral aspect of the mandible. Beam hardening artifact from dental implants are seen bilaterally which limits evaluation. There is metallic density within the anatomical region of the first molar tooth of the right maxilla which is extending to the right maxillary sinus. Almost complete opacification of the right maxillary sinus is seen. There is also thickening and irregularity of the anterior and lateral wall of the right maxillary sinus. IMPRESSION: 1. There is diffuse edema of the soft tissue overlying right aspect of the mandible with focal area of enhancement which could represent abscess formation. 2. Metallic dental hardware within right maxillary first molar which is extendi ng to the right maxillary sinus and associated with its incomplete opacification. Deformity of anterior and lateral wall of the right maxillary sinus also associated with osseous remodeling might represent sequela from prior fracture and chronic sinusitis. Please correlate above-mentioned findings with prior history. ACT 112: Negative or not required by law. The above report was generated using voice recognition software. It may contain grammatical, syntax or spelling errors. Electronically signed by: Imelda Browning DO 06/26/2021 9:05 AM Medications Administered Home Medications ascorbic acid (vitamin C) 500 mg tablet 500 mg PO QAM tab 05/25/20 [History Confirmed 06/26/21] aspirin 81 mg tablet,delayed release 81 mg PO HS 11/17/20 [History Confirmed 06/26/21] atorvastatin 80 mg tablet 80 mg PO HS 11/17/20 [History Confirmed 06/26/21] cholecalciferol (vitamin D3) 25 mcg (1,000 unit) capsule (Vitamin D3) 50 mcg PO HS 11/17/20 [History Confirmed 06/26/21] magnesium oxide 400 mg PO HS 11/17/20 [History Confirmed 06/26/21] amiodarone 200 mg tablet 200 mg PO DAILY #90 tab 12/07/20 [Rx Confirmed 06/26/21] lisinopril 5 mg tablet 5 mg PO DAILY PRN 01/05/21 [History Confirmed 06/26/21] metoprolol succinate 100 mg tablet,extended release 24 hr 100 mg PO BID #180 tab 02/07/21 [Rx Confirmed 06/26/21] apixaban 5 mg tablet (Eliquis) 5 mg PO BID #60 tab 06/13/21 [Rx Confirmed 06/26/21] spironolactone 25 mg-hydrochlorothiazide 25 mg tablet 1 tab PO QAM #90 tab 06/13/21 [Rx Confirmed 06/26/21] sertraline 50 mg tablet 100 mg PO .COMPLEX #180 tab 06/19/21 [Rx Confirmed 06/26/21] dulaglutide 1.5 mg/0.5 mL subcutaneous pen injector (Trulicity) 1.5 mg SUBCUT SA 06/26/21 [History Confirmed 06/26/21] vitamin A acetate 10,000 unit sublingual tablet 10,000 unit PO HS 06/26/21 [History Confirmed 06/26/21] zinc acetate 50 mg (zinc) capsule 50 mg PO HS 06/26/21 [History Confirmed 06/26/21] Active Medications Morphine Sulfate (Morphine Sulfate 4 Mg/Ml 1 Ml Carp\Vial) 4 mg IV Q30M PRN PRN Reason: Pain Stop: 07/10/21 11:28 Last Admin: 06/26/21 11:37 Dose: 4 mg Documented by: PG Care Time/CCT Total # of Minutes Spent Total Time Spent with Patient: Total time spent is greater than 50% in coordination of care (as documented) at patient's floor/unit and/or counseling patient: Coding Level of Care Code 93988 Initial Inpt Care Lvl 3 Diagnoses Odontogenic infection of jaw M27.2 Hyperlipidemia E78.5 Hypertension I10 Type 2 diabetes mellitus E11.9 PAF (paroxysmal atrial fibrillation) I48.0 DVT prophylaxis Z29.9
[2021-06-26] MEDS: MoRPHine SULFATE 4 MG/ML 1 ML CARP\\VIAL IV PRN ×2 (11:37→12:54)
[2021-06-26] MEDS ORDERED: Heparin IV Adult Wt-Based Standard *NO* Bolus Protocol STA (12:09)
[2021-06-26] MEDS ORDERED: HEPARIN 25000 UNIT/500 ML D5W IV ONE (12:39)
[2021-06-26] MEDS: HEPARIN SODIUM/DEXTROSE 25,000 UNITS/500 ML BAG IV SCH (12:46)
[2021-06-26] MEDS: AMPICILLIN/SULBACTAM SOD 3,000 MG in 0.9 % SODIUM CHLORIDE 100 ML IV SCH ×3 (12:50→22:59)
[2021-06-26] MEDS ORDERED: DEXTROSE 50% 50 ML SYRINGE IV PRN (15:20)
[2021-06-26] MEDS ORDERED: GLUCAGON FOR INJ 1 MG VIAL SQ PRN (15:20)
[2021-06-26] MEDS ORDERED: ONDANSETRON INJ 2 MG/ML 2 ML VIAL IV PRN (15:20)
[2021-06-26] MEDS ORDERED: GLUCOSE 40% GEL 15 GM TUBE PO PRN (15:20)
[2021-06-26] MEDS ORDERED: CARBOHYDRATES FOR HYPOGLYCEMIA PO PRN (15:20)
[2021-06-26] MEDS ORDERED: GLUCOSE 10 TABS/TUBE PO PRN (15:20)
[2021-06-26] MEDS ORDERED: MoRPHine SULFATE 2 MG/ML CARP IV PRN (15:20)
[2021-06-26] MEDS ORDERED: MoRPHine SULFATE 4 MG/ML 1 ML CARP\\VIAL IV PRN (15:20)
[2021-06-26] MEDS: AMIODARONE 200 MG TAB PO SCH (17:12)
[2021-06-26] MEDS: SPIRONOLACTONE/HCTZ 25-25 PO SCH (17:13)
[2021-06-26] MEDS: METOPROLOL SUCC 50MG EXT REL TAB PO SCH ×2 (17:13→20:59)
[2021-06-26] MEDS: SERTRALINE HCL 100 MG TABLET PO SCH (17:13)
[2021-06-26] MEDS: INSULIN ASPART 100 UNITS/ML 3 ML PEN SC SCH ×2 (17:38→21:00)
[2021-06-26] MEDS: ACETAMINOPHEN 325 MG TAB PO PRN (17:45)
[2021-06-26 19:21] LABS: Partial Thromboplastin Time 52.5 Seconds (21.0-31.0)
[2021-06-26] MEDS: ATORVASTATIN 40 MG TAB PO SCH (20:58)
--- NOTE | 2021-06-26 22:01 | Oral/Maxillofacial Consult ---
Date of Consultation June 26, 2021 Oral Maxillofacial Surgery Consult Present Complaint: Hilda is here for right jaw and neck pain following wisdom tooth extraction. She reports she had root canal of her right lower jaw, tooth #29. The next day she started to feel unwell and Saturday she developed Sat R cheek lump and lip swelling. Went to acute care (couldn't get call back from dentist) and was put on penicillin twice daily. She reports the pain and swelling continue to increase over the weekend and evening. This morning vomiting, and increased pain and presented to the ER. +Chills x1 days, not sure if he has been febrile. Pain at admission 8/10, achy in jaw no radiation without palpation. Denies voice change, difficulty breathing, wheezing. Has not taken any medications this morning, last took Saturday night. Reports she has had an ablation for A. fib which she is in and out of, but believes she is normally with a regular rhythm. Denies other recent illnesses. Oral Exam: Gross swelling mucobuccal fold # 29-31 area, root canal # 29 Otherwise good state of dental repair. Submandibular, submental, lateral neck and mucobuccal fold right side Tender # 29 Imaging: There is diffuse edema of the soft tissue overlying right aspect of the mandible with focal area of enhancement which could represent abscess formation. Metallic dental hardware within right maxillary first molar which is extending to the right maxillary sinus and associated with its incomplete opacification. Deformity of anterior and lateral wall of the right maxillary sinus also associated with osseous remodeling might represent sequela from prior fracture and chronic sinusitis. Soft tissue: floor of the mouth, Mucobuccal fold, submandibular/sub mental area --swollen No other pathology or abnormal findings noted. All WNL--tongue, hard/soft palate, posterior pharyngeal area all with in normal limits, Oral Care: Overall oral care is good Occlusion: Class I TMJ exam: No pop, clicking, pain, good ROM, No history of TMJ injury or dysfunction Periodontal exam: Healthy gingival tissue without evidence of periodontal pathology. Noted gross swelling from # 28-31 area Head/Neck exam: no swallowing issues now but Hilda feels her throat is tight Neck is swollen right side as is submental area, FROM slightly limited secondary to swelling right side Able to extend and flex neck with some difficulty, no masses, no abnormalities other then the swelling from infected # 29 , no airway issues, no evidence of sleep apnea. Treatment Plan: Admission for IV meds Need medical clearance for I&D Hold Eliquis for 48 hours I&D Jun 28 2021 at 7:15 in OR for I&D and extraction of # 29 Once medically stable and infection controlled will plan discharge on oral antibiotics. Set up with general anesthesia in hospital due to complexity of the procedure and her cardiac history. I reviewed the treatment plan and consent with the patient and her . Understanding was expressed. Time was given for questions regarding the surgery, risks and post op care. Discussed alternative to treatment--procedure as planned, Do not do surgery Risks discussed: Bleeding, Pain,swelling,infection, dry socket, delayed healing, nerve injury to face,lips,tongue,chin area which could be permanent (rare). TMJ, jaw stiffness, change in bite (rare), ear pain (referred). Sinus problems like fistula or infection. Need to leave a small root fragment in place to avoid injury to nerve or sinus. Home care reviewed: tooth brushing, rinsing, follow up care with Dr Morgan. diet=bduip-ramm-xoic dental. Discussed activity level, driving/work while on Rx pain Meds. Surgery to be set up for June 28 2021 at 7:15 Assessment & Plan (1) Odontogenic infection of jaw: (2) History of recent dental procedure: (3) Facial edema: (4) Right facial pain: (5) Swelling of submandibular region: (6) Infection of submental space: History of Present Illness Attending Physician: Julian El MD Allergies Allergy/AdvReac Type Severity Reaction Status Date / Time No Known Drug Allergies Allergy Verified 06/26/21 07:29 Home Medications Medication Instructions Recorded Confirmed Type ascorbic acid (vitamin C) 500 mg 500 mg PO QAM tab 05/25/20 06/26/21 History tablet aspirin 81 mg tablet,delayed 81 mg PO HS 11/17/20 06/26/21 History release atorvastatin 80 mg tablet 80 mg PO HS 11/17/20 06/26/21 History cholecalciferol (vitamin D3) 25 50 mcg PO HS 11/17/20 06/26/21 History mcg (1,000 unit) capsule (Vitamin D3) magnesium oxide 400 mg PO HS 11/17/20 06/26/21 History amiodarone 200 mg tablet 200 mg PO DAILY #90 tab 12/07/20 06/26/21 Rx lisinopril 5 mg tablet 5 mg PO DAILY PRN 01/05/21 06/26/21 History metoprolol succinate 100 mg 100 mg PO BID #180 tab 02/07/21 06/26/21 Rx tablet,extended release 24 hr apixaban 5 mg tablet (Eliquis) 5 mg PO BID #60 tab 06/13/21 06/26/21 Rx spironolactone 25 1 tab PO QAM #90 tab 06/13/21 06/26/21 Rx mg-hydrochlorothiazide 25 mg tablet sertraline 50 mg tablet 100 mg PO .COMPLEX #180 tab 06/19/21 06/26/21 Rx dulaglutide 1.5 mg/0.5 mL 1.5 mg SUBCUT SA 06/26/21 06/26/21 History subcutaneous pen injector (Trulicity) vitamin A acetate 10,000 unit 10,000 unit PO HS 06/26/21 06/26/21 History sublingual tablet zinc acetate 50 mg (zinc) capsule 50 mg PO HS 06/26/21 06/26/21 History Patient History Medical History (Updated 06/27/21 @ 07:19 by Ezequiel Morgan DMD) Atherosclerosis of [place] coronary artery without angina pectoris Benign colonic polyp Diverticulosis Hyperlipidemia Hypertension Type 2 diabetes mellitus Surgical History H/O: section H/O: hysterectomy History of coronary artery stent placement Family History Mother Myocardial infarction Diabetes Hypertension Kidney disease Uncle Colon cancer Father Cerebral aneurysm Other Benign adenomatous polyp of large intestine Denies family history of Ovarian cancer Prostate cancer Breast cancer Social History Smoking Status: Former smoker Tobacco Type: Cigarettes Age Started Using Tobacco: 33; Age Quit Using Tobacco: 49; Years Smoked: 16; Cigarettes Per Day: 15; Number of Years Since Quit: 11; Second Hand Exposure: No; Do You Dip or Chew Tobacco: No; Tobacco Cessation Education Requested by Patient: No Hx Alcohol Use: Yes Alcohol type: beer Hx Substance Use: No Preferred Language: U[place] Communication Ability: Effective Community Leader Required: No Beliefs That Will Affect Care: None marital status: Current Living Situation: Family current occupational status: employed Other Information That Helps Us Care for You: No Feels Safe at Home: Yes Safety Concerns: Feels Safe At This Time Childhood Exposure to Second-Hand Smoke: Yes Dental Care, Regularly: Yes Physical Activity Frequency: Does not Exercise Seatbelt Use: always Sunscreen Use: Yes Assistive Devices: Glasses Results & Data ([facility]) Vital Signs (Past 12 Hours) Vital Signs Temp Pulse Resp BP Pulse Ox 06/26/21 20:57 72 117/76 06/26/21 15:26 38.3 C H 70 18 129/82 96 06/26/21 14:40 72 18 130/74 94 06/26/21 13:22 68 18 143/94 H 93 06/26/21 12:51 67 18 128/77 93 06/26/21 11:16 70 18 108/83 97 PG Care Time/CCT Total # of Minutes Spent Total Time Spent with Patient: Total time spent is greater than 50% in coordination of care (as documented) at patient's floor/unit and/or counseling patient: Coding Level of Care Code 78883 Inpt Consult Level 3 Diagnoses Odontogenic infection of jaw M27.2 History of recent dental procedure Z98.890 Facial edema R60.0 Right facial pain R51.9 Swelling of submandibular region R22.0; R22.1 Infection of submental space K12.2
[2021-06-27] MEDS: AMPICILLIN/SULBACTAM SOD 3,000 MG in 0.9 % SODIUM CHLORIDE 100 ML IV SCH ×4 (05:29→23:58)
[2021-06-27] MEDS: HEPARIN SODIUM/DEXTROSE 25,000 UNITS/500 ML BAG IV SCH (06:05)
[2021-06-27] MEDS: INSULIN ASPART 100 UNITS/ML 3 ML PEN SC SCH ×5 (07:03→20:47)
[2021-06-27 07:37] LABS: Basophils # (auto) 0.01 K/uL (0-0.2); Basophils % (auto) 0.1 %; Eosinophils # (auto) 0.12 K/uL (0-0.5); Eosinophils % (auto) 1.1 %; Hemoglobin 12.6 g/dL (12.0-16.0); Immature Granulocytes # (auto) 0.03 K/uL (0.00-0.02); Immature Granulocytes % (auto) 0.3 %; Lymphocytes # (auto) 2.59 K/uL (1.2-3.4); Lymphocytes % (auto) 23.3 %; Mean Corpuscular Hemoglobin 31.5 pg (25-34); Mean Corpuscular Hgb Conc 33.2 g/dL (32-36); Mean Platelet Volume 11.4 fL (7.4-10.4); Monocytes # (auto) 1.25 K/uL (0.11-0.59); Monocytes % (auto) 11.3 %; Neutrophils % (auto) 63.9 %; Platelet Count 227 K/uL (130-400); RDW Coefficient of Variation 12.1 % (11.5-14.5)
[2021-06-27 07:56] LABS: Partial Thromboplastin Ratio 2.7
[2021-06-27 08:06] LABS: Partial Thromboplastin Time 71.2 Seconds (21.0-31.0)
--- NOTE | 2021-06-27 08:34 | Oral/Maxillofacial Progress Nt ---
Date of Service June 27, 2021 infection evaluation The infected area is more localized to the mucobuccal fold and submandibular area. Tooth # 29 had a recent root canal and this is the etiology. No drainage is noted. Infection has not yet responded to the IV antibiotics and the I&D is necessary--I will plan this tomorrow in OR at 7:15 with [place] Plan --extraction of # 29, oral and possible extra oral I&D I reviewed the CT scan and it appears the cause is the recent Root Canal of # 29. Hilda had prior orthognathic surgery and the fixation screws are well positioned and look good. NPO 12 midnight Need to stop or manage the Heparin before the surgery tomorrow. Assessment & Plan Admission and Anticipated Discharge Date Admission Date: June 26, 2021 Results & Data ([facility]) Vital Signs (Past 12 Hours) Vital Signs Temp Pulse Resp BP BP Pulse Ox 06/27/21 07:13 36.8 C 61 16 109/70 94 06/26/21 23:34 36.7 C 55 L 16 118/60 93 06/26/21 20:57 72 117/76 PG Care Time/CCT Total # of Minutes Spent Total Time Spent with Patient: Total time spent is greater than 50% in coordination of care (as documented) at patient's floor/unit and/or counseling patient: Coding Level of Care Code 86123 Subseq Hosp Care Lvl 1
[2021-06-27] MEDS: ACETAMINOPHEN 325 MG TAB PO PRN ×3 (08:39→18:15)
[2021-06-27 08:40] LABS: BUN Creatinine Ratio 13.1 (10-20); Calcium 9.2 mg/dl (8.5-10.1); Creatinine Clr Calc Pharmacy 89.7 ml/min; Est GFR (African American) 93.5 ml/min; Est GFR (Non-African American) 80.7 ml/min; Potassium 3.9 mmol/L (3.5-5.1)
[2021-06-27] MEDS: SPIRONOLACTONE/HCTZ 25-25 PO SCH (08:40)
[2021-06-27] MEDS: METOPROLOL SUCC 50MG EXT REL TAB PO SCH ×2 (08:40→20:50)
[2021-06-27] MEDS: SERTRALINE HCL 100 MG TABLET PO SCH (08:40)
[2021-06-27] MEDS: AMIODARONE 200 MG TAB PO SCH (08:40)
--- NOTE | 2021-06-27 09:44 | Hospitalist Progress Note ---
Date of Service June 27, 2021 Assessment & Plan (1) Odontogenic infection of jaw: (2) Chronic anticoagulation: (3) Hyperlipidemia: (4) Hypertension: (5) Type 2 diabetes mellitus: (6) PAF (paroxysmal atrial fibrillation): Plan: Hilda North is a 60-year-old female with a past medical history of paroxysmal atrial fibrillation, hypertension, hyperlipidemia who presents with a odontogenic infection of the right lower jaw following root canal of tooth #29. Case has been discussed with Dr. Morgan, patient is being admitted for antibiotic treatment pending source control. Odontogenic infection, right lower jaw Patient with root canal June 5 of tooth #29 and subsequent pain, swelling, and chills CT: There is diffuse edema of the soft tissue overlying right aspect of the mandible with focal area of enhancement which could represent abscess formation. Metallic dental hardware within right maxillary first molar which is extending to the right maxillary sinus and associated with its incomplete opacification. Deformity of anterior and lateral wall of the right maxillary sinus also associated with osseous remodeling might represent sequela from prior fracture and chronic sinusitis. -Continue Unasyn 3 g every [address] Morgan oromaxillofacial surgery consulted -- I&D scheduled for 8/11 AM On heparin as below while DOAC held for A. fib -- hold heparin at midnight prior to procedure N.p.o. at midnight, liquid diet at this time Pain control with Tylenol, scaled morphine 2-4 mg every 4 hours as needed Hyperlipidemia Continue atorvastatin 80 mg p.o. nightly Hypertension Normotensive at time of admission. Home antihypertensives held pending potential surgical intervention Aspirin held x1 pending potential neck abscess drainage Type 2 diabetes mellitus Home Trulicity held Last A1c approximately 8% SSI goal 1001 40, correction factor 50, ratio 15 PAF (paroxysmal atrial fibrillation) Apixaban held pending potential neck abscess drainage Heparin GTT while apixaban held -- hold heparin at midnight prior to procedure DVT prophylaxis: On heparin as above -- hold at midnight Diet: N.p.o. at midnight, liquid diet. NSS 100 cc/h while n.p.o. Dispo: Medical/surgical CODE STATUS: Full code Admission and Anticipated Discharge Date Admission Date: June 26, 2021 Supervising Physician Co-Signing Physician Notes Patient seen and examined independently of PGY-2 Dr. Hunt. Agree with history, exam findings, assessment and plan of care as outlined. In brief, Ms North is a 60 year old female with history of HTN, HLD, DM, and pAF admitted with an odontogenic infection following a root canal. Continues to have pain and swelling to the right jaw. No fevers. She is able to eat soft foods and avoids chewing on the right side. Vital signs and nursing notes reviewed. Non-toxic appearing. Able to protect her airway. Swelling to the right side of the face. Area is mildly erythematous and tender. Heart with regular rate and rhythm. Labs and imaging reviewed. 1. Odontogenic infectionright lower jaw. Continue Unasyn. Plan for I&D in the OR and tooth extraction with Dr. Morgan. 2. DM. Holding home trulicity. Sliding scale insulin. 3. pAF. Holding home eliquis. On heparin gttwill stop at midnight. 4. HTN. Holding home Lisinopril, metoprolol, spironolactone. 5. Hyponatremia. Likely secondary to decreased oral intake. On IVFs. 6. Obesity. Likely metabolic syndrome. Trulicity will likely help with weight loss efforts as well. Dispo: pending surgical intervention tomorrow. Subjective Patient seen at bedside this AM. Had just seen Dr. Morgan and updated on procedure tomorrow. Patient agrees. Reports tenderness around the infected tooth but otherwise doing well and relatively comfortable. Review of Systems Review of Systems: All systems reviewed & are unremarkable except as noted in Subjective Physical Exam Constitutional: WD/WN, vitals as above Eyes: PERRL, conjunctivae normal, anicteric sclerae ENMT: Swelling in mouth around tooth #29 with purulent appearance Neck: + submandibular swelling (right side) Respiratory: normal respiratory effort, lungs clear to auscultation Cardiovascular: RRR, no murmur, no edema Heart Sounds: normal S1 and normal S2 Skin: no rashes, warm and dry Psychiatric: A+Ox3, euthymic affect Results & Data Results & Data ([facility]) Vital Signs (Past 12 Hours) Vital Signs Temp Pulse Resp BP BP Pulse Ox 06/27/21 07:13 36.8 C 61 16 109/70 94 06/26/21 23:34 36.7 C 55 L 16 118/60 93 Resident Activity Tracking Resident Involvement: Resident Care Provided Care Provided: Adult [facility]
[2021-06-27 14:54] LABS: Partial Thromboplastin Ratio 2.5
[2021-06-27 15:05] LABS: Partial Thromboplastin Time 66.7 Seconds (21.0-31.0)
[2021-06-27] MEDS: ATORVASTATIN 40 MG TAB PO SCH (20:46)
[2021-06-27 22:06] LABS: Partial Thromboplastin Time 27.2 Seconds (21.0-31.0)
[2021-06-27] MEDS: SODIUM CHLORIDE 0.9% 1000ML 1,000 ML IV SCH (23:58)
[2021-06-28] MEDS ORDERED: Nursing to Pharmacy Communication SCH ×2 (05:00→17:30)
[2021-06-28] MEDS: INSULIN ASPART 100 UNITS/ML 3 ML PEN SC SCH ×4 (05:49→20:41)
[2021-06-28] MEDS: AMPICILLIN/SULBACTAM SOD 3,000 MG in 0.9 % SODIUM CHLORIDE 100 ML IV SCH ×4 (05:50→23:57)
[2021-06-28] MEDS ORDERED: ePHEDrine sulfate 50 MG/ML AMP IV PRN (06:23)
[2021-06-28] MEDS ORDERED: ATROPINE SULFATE 0.1 MG/ML 10ML SYR IV PRN (06:23)
[2021-06-28] MEDS ORDERED: ONDANSETRON INJ 2 MG/ML 2 ML VIAL IV PRN (06:23)
[2021-06-28] MEDS ORDERED: HYDROmorphone INJ 1 MG/ML SYRINGE IV PRN (06:23)
[2021-06-28] MEDS ORDERED: fentaNYL citrate 100 MCG/2 ML VIAL IV PRN (06:23)
--- NOTE | 2021-06-28 06:40 | Anesthesiology Consultation ---
Date of Service June 28, 2021 Assessment & Plan (1) Encounter for pre-operative examination: Chart Review Chart Review: Acceptable Risk for Surgery and Patient NOT seen in Pre Admission Testing Consults Requested none History Surgery Operation Date: 06/28/21 07:15 Proposed Procedures p #29 Incision, Drainage and Extraction - Ezequiel Macy Morgan, DMD Height/Weight Height: 5 ft 2 in Weight: 112.4 kg Allergies Allergy/AdvReac Type Severity Reaction Status Date / Time No Known Drug Allergies Allergy Verified 06/26/21 07:29 Medications Home Medications Medication Instructions Recorded Confirmed Last Taken ascorbic acid (vitamin C) 500 mg 500 mg PO QAM tab 05/25/20 06/26/21 06/25/21 tablet aspirin 81 mg tablet,delayed 81 mg PO HS 11/17/20 06/26/21 06/25/21 release atorvastatin 80 mg tablet 80 mg PO HS 11/17/20 06/26/21 06/25/21 cholecalciferol (vitamin D3) 25 50 mcg PO HS 11/17/20 06/26/21 06/25/21 mcg (1,000 unit) capsule (Vitamin D3) magnesium oxide 400 mg PO HS 11/17/20 06/26/21 06/25/21 amiodarone 200 mg tablet 200 mg PO DAILY #90 tab 12/07/20 06/26/21 06/25/21 lisinopril 5 mg tablet 5 mg PO DAILY PRN 01/05/21 06/26/21 06/25/21 metoprolol succinate 100 mg 100 mg PO BID #180 tab 02/07/21 06/26/21 06/25/21 tablet,extended release 24 hr apixaban 5 mg tablet (Eliquis) 5 mg PO BID #60 tab 06/13/21 06/26/21 06/25/21 spironolactone 25 1 tab PO QAM #90 tab 06/13/21 06/26/21 06/25/21 mg-hydrochlorothiazide 25 mg tablet sertraline 50 mg tablet 100 mg PO .COMPLEX #180 tab 06/19/21 06/26/21 06/25/21 dulaglutide 1.5 mg/0.5 mL 1.5 mg SUBCUT SA 06/26/21 06/26/21 06/25/21 subcutaneous [facility] ([facility] vitamin A acetate 10,000 unit 10,000 unit PO HS 06/26/21 06/26/21 06/25/21 sublingual tablet zinc acetate 50 mg (zinc) capsule 50 mg PO HS 06/26/21 06/26/21 06/25/21 Active Medications Generic Name Dose Route Start Last Admin Trade Name Freq PRN Reason Stop Dose Admin Acetaminophen 650 mg 06/26/21 15:20 06/27/21 18:15 Acetaminophen 325 Mg Tab PO 07/26/21 15:19 650 mg Q4H PRN Administration pain/fever Amiodarone HCl 200 mg 06/26/21 15:20 06/27/21 08:40 Amiodarone 200 Mg Tab PO 07/26/21 15:19 200 mg DAILY ALEXX Administration Atorvastatin Calcium 80 mg 06/26/21 21:00 06/27/21 20:46 Atorvastatin 40 Mg Tab PO 07/26/21 20:59 80 mg HS ALEXX Administration HCTZ/Spironolactone 1 tab 06/26/21 15:20 06/27/21 08:40 Spironolactone/Hctz 25-25 PO 07/26/21 15:19 1 tab QAM ALEXX Administration Ampicillin Sodium/Sulbactam 108 mls @ 200 mls/hr 06/26/21 12:09 06/28/21 06:25 Sodium 3,000 mg/ Sodium IV 07/03/21 12:08 Infused Chloride Q6H ALEXX Infusion Protocol Heparin Sodium/Dextrose 25,000 units in 500 mls @ 26 mls/hr 06/26/21 12:46 06/27/21 17:56 Heparin Sodium/Dextrose IV 07/26/21 12:45 0 units/hr .[id number] ALEXX 0 mls/hr Titration Protocol 1,300 UNITS/HR Sodium Chloride 1,000 mls @ 100 mls/hr 06/28/21 00:00 06/28/21 06:25 Nss 1000ml IV 07/28/21 00:00 100 mls/hr .Q10H ALEXX Infusion Insulin Aspart 0 units 06/28/21 06:00 06/28/21 05:49 Insulin Aspart 100 Units/Ml 3 Ml Pen SC 07/28/21 05:59 1 units Q6 ALEXX Administration Metoprolol Succinate 100 mg 06/26/21 15:20 06/27/21 20:50 Metoprolol Succ 50mg Ext Rel Tab PO 07/26/21 15:19 Not Given BID ALEXX Sertraline HCl 100 mg 06/26/21 15:20 06/27/21 08:40 Sertraline Hcl 100 Mg Tablet PO 07/26/21 15:19 100 mg DAILY ALEXX Administration Past Medical History Medical History (Updated 06/28/21 @ 06:39 by Aayush Horne MD) Atherosclerosis of [place] coronary artery without angina pectoris Benign colonic polyp Chronic anticoagulation Diverticulosis Hyperlipidemia Hypertension Odontogenic infection of jaw Swelling of submandibular region Type 2 diabetes mellitus Exercise / Class Metabolic Activity II 4-5 Yardwork/Stairs/Walk up hill Past Family History Family History Mother Myocardial infarction Diabetes Hypertension Kidney disease Uncle Colon cancer Father Cerebral aneurysm Other Benign adenomatous polyp of large intestine Denies family history of Ovarian cancer Prostate cancer Breast cancer Past Surgical History Surgical History H/O: section H/O: hysterectomy History of coronary artery stent placement recent cardiac ablation Past Anesthesia History No Hx of Anesthesia Complications and No Family Hx of Anesthesia Complications History of PONV No Hx of PONV and No Hx of Motion Sickness Social History Smoking Status: Former smoker tobacco type: cigarettes Smoking cigarettes per day: 15 Do You Dip or Chew Tobacco: No Hx Alcohol Use: Yes Alcohol type: beer alcohol intake frequency: holidays/special occasions only Hx Substance Use: No substance use type: does not use Last Used Substance: Unknown Physical Exam Vital Signs Last Vital Signs Temp 36.9 C 06/28/21 06:32 Pulse 63 06/28/21 06:32 Resp 20 06/28/21 06:32 BP 117/74 06/28/21 06:32 Pulse Ox 97 06/28/21 06:32 Testing Laboratory Results 06/27/21 07:22 06/27/21 07:22 APTT 27.2 Seconds (21.0-31.0) 06/27/21 21:25 06/28/21 06/27/21 05:46 20:33 POC Glucose 152 H 146 H Electrocardiogram sr
[2021-06-28] MEDS ORDERED: LIDOCAINE 2% 2 ML VIAL/AMP(20MG/ML) INFIL ONE (06:47)
[2021-06-28] MEDS ORDERED: GLYCOPYRROLATE 0.2 MG/ML VIAL ONE (06:47)
[2021-06-28] MEDS ORDERED: PROPOFOL IV EMULSION 10 MG/ML 20 ML VIAL IV ONE (06:47)
[2021-06-28] MEDS ORDERED: MIDAZOLAM HCL 1 MG/ML 2ML VIAL ONE (06:47)
[2021-06-28] MEDS ORDERED: DEXAMETHASONE SOD INJ 4 MG/ML VIAL ONE (06:47)
[2021-06-28] MEDS ORDERED: ONDANSETRON INJ 2 MG/ML 2 ML VIAL ONE (06:47)
[2021-06-28] MEDS ORDERED: fentaNYL citrate 100 MCG/2 ML VIAL ONE ×2 (06:47→06:48)
[2021-06-28] MEDS ORDERED: NEOSTIGMINE METHYLSULFATE 1 MG/ML 10ML VIAL ONE (06:47)
[2021-06-28] MEDS ORDERED: OXYMETAZOLINE 0.05% 30 ML BTL ONE (07:00)
[2021-06-28] MEDS ORDERED: CHLORHEXIDINE GLUCONATE 0.12% 480 ML ONE (07:06)
[2021-06-28] MEDS ORDERED: BUPIVACAINE/EPINEPHRINE 0.5% 1:200,000 1.8 ML CARP ONE (07:06)
--- NOTE | 2021-06-28 07:15 | History & Physical Bridge Note ---
Date of Service June 28, 2021 History & Physical Bridge Note I have examined the patient, reviewed the History & Physical and in the interval since the performance of the History & Physical I have noted the following changes of clinical significance: no changes notedI will plan I&D intraoral with extraction of # 29
[2021-06-28] MEDS ORDERED: KETOROLAC 30 MG/ML VIAL ONE (07:46)
--- NOTE | 2021-06-28 08:16 | Hospitalist Progress Note ---
Date of Service June 28, 2021 Assessment & Plan (1) Odontogenic infection of jaw: (2) Chronic anticoagulation: (3) Hyperlipidemia: (4) Hypertension: (5) Type 2 diabetes mellitus: (6) PAF (paroxysmal atrial fibrillation): Plan: Hilda North is a 60-year-old female with a past medical history of paroxysmal atrial fibrillation, hypertension, hyperlipidemia who presents with a odontogenic infection of the right lower jaw following root canal of tooth #29. Case has been discussed with Dr. Morgan, patient is being admitted for antibiotic treatment pending source control. Odontogenic infection, right lower jaw Patient with root canal June 5 of tooth #29 and subsequent pain, swelling, and chills CT: There is diffuse edema of the soft tissue overlying right aspect of the mandible with focal area of enhancement which could represent abscess formation. Metallic dental hardware within right maxillary first molar which is extending to the right maxillary sinus and associated with its incomplete opacification. Deformity of anterior and lateral wall of the right maxillary sinus also associated with osseous remodeling might represent sequela from prior fracture and chronic sinusitis. -Continue Unasyn 3 g every 6 hours -- plan to transition to oral on DC Dr. Morgan oromaxillofacial surgery consulted -- I&D performed 8/11 AM - Plan to watch for 24h post-I&D and DC 06/29 on oral abx, likely Augmentin with outpatient f/u Pain control with Tylenol, scaled morphine 2-4 mg every 4 hours as needed Hyperlipidemia Continue atorvastatin 80 mg p.o. nightly Hypertension Normotensive at time of admission. Home antihypertensives held pending potential surgical intervention Aspirin held for I&D Receiving home Toprol XL 100mg PO BID Remains normotensive post-intervention--plan to restart all meds at DC Type 2 diabetes mellitus Home Trulicity held Last A1c approximately 8% SSI goal 1001 40, correction factor 50, ratio 15 PAF (paroxysmal atrial fibrillation) Apixaban held prior to surgical procedure -- continue to hold for 24 hours after surgery, restart at DC Heparin GTT stopped prior to procedure as well -- plan to restart home apixaban as above Continue home Toprol XL 100mg PO BID DVT prophylaxis: SCDs Diet: DM2, easy to chew diet Dispo: Medical/surgical CODE STATUS: Full code Admission and Anticipated Discharge Date Admission Date: June 26, 2021 Supervising Physician Co-Signing Physician Notes Patient seen and examined with PGY-2 Dr. Hunt. Agree with history, exam findings, assessment and plan of care as outlined. In brief, Ms North is a 60 year old female with history of HTN, HLD, DM, and pAF admitted with an odontogenic infection following a root canal. s/p I&D in the OR with Dr. Morgan. Pain is improved. Doing cold packs. Vital signs and nursing notes reviewed. Non-toxic appearing. Able to protect her airway. Heart with regular rate and rhythm. Labs and imaging reviewed. 1. Odontogenic infectionright lower jaw. s/p I&D with Dr. Morgan. Continue Unasyn x 24 hours then transition to oral Augmentin. 2. DM. Holding home trulicity. Sliding scale insulin. 3. pAF. Holding home eliquis. On heparin gttwill stop at midnight. 4. HTN. Holding home Lisinopril, metoprolol, spironolactone. 5. Hyponatremia. Likely secondary to decreased oral intake. On IVFs. 6. Obesity. Likely metabolic syndrome. Trulicity will likely help with weight loss efforts as well. Dispo: Anticipate discharge tomorrow if no overnight events/complications. Subjective Patient seen at bedside after her procedure. Was doing well overall and feeling more alert from the anesthesia. She was looking forward to having a meal. Wearing ice pack and mentioned feeling much better than prior to procedure. No other complaints/concerns. Review of Systems Review of Systems: All systems reviewed & are unremarkable except as noted in Subjective Physical Exam Constitutional: WD/WN, vitals as above Eyes: PERRL, conjunctivae normal, anicteric sclerae Neck: + submandibular swelling (right side) Respiratory: normal respiratory effort, lungs clear to auscultation Cardiovascular: RRR, no murmur, no edema Heart Sounds: normal S1 and normal S2 Skin: no rashes, warm and dry Psychiatric: A+Ox3, euthymic affect Results & Data Results & Data ([facility]) Vital Signs (Past 12 Hours) Vital Signs Temp Pulse Resp BP BP Pulse Ox 06/28/21 06:32 36.9 C 63 20 117/74 97 06/28/21 06:00 36.7 C 60 16 121/64 97 06/27/21 23:19 36.9 C 62 16 117/74 95 06/27/21 20:45 56 L 129/79 Resident Activity Tracking Resident Involvement: Resident Care Provided Care Provided: Adult Hospital Medicine
--- NOTE | 2021-06-28 08:43 | Post Operative Brief Note ---
PG Immediate Post Op with CF Date of Surgery June 28, 2021 Pre & Post Diagnosis Operation Date: 06/28/21 07:15 Pre-Op Diagnosis: Right Jaw Abscess Post-Op Diagnosis: Right Jaw Abscess I identified the patient and participated in the time-out.: Yes Procedure Operation Date: 06/28/21 07:15 Actual Procedures p #29 Incision, Drainage, and Extraction(Not Applicable) - Ezequiel Morgan DMD Surgeon Ezequiel Morgan DMD Apartment Maintenance Technician none Estimated Blood Loss 3 Findings Consistent with Post-Op Diagnosis swollen submandibular are subperiosteal area right side Specimens Specimen Description: Culture: 1: Drainage Right Mandible A: Infection Right Mandible Complications none
[2021-06-28] MEDS: METOPROLOL SUCC 50MG EXT REL TAB PO SCH ×2 (12:38→20:34)
[2021-06-28] MEDS: SERTRALINE HCL 100 MG TABLET PO SCH (12:38)
[2021-06-28] MEDS: AMIODARONE 200 MG TAB PO SCH (12:38)
[2021-06-28] MEDS: SPIRONOLACTONE/HCTZ 25-25 PO SCH (12:39)
--- NOTE | 2021-06-28 13:05 | Anesthesiology Progress Note ---
Date of Service June 28, 2021 Anesthesia Post Procedure Vital Signs Vital Signs: Temp Pulse Pulse Resp BP BP Pulse Ox 06/28/21 12:30 62 16 118/74 92 06/28/21 11:29 58 L 16 125/64 92 06/28/21 10:28 36.8 C 61 20 129/75 97 06/28/21 10:00 36.9 C 62 18 127/82 97 06/28/21 09:35 36.9 C 65 16 124/77 97 06/28/21 09:25 60 12 114/66 96 06/28/21 09:15 36.3 C L 66 12 117/68 96 06/28/21 09:05 68 12 126/55 L 94 06/28/21 08:55 72 12 143/68 H 95 06/28/21 08:45 36.7 C 78 12 125/81 94 06/28/21 06:32 36.9 C 63 20 117/74 97 06/28/21 06:00 36.7 C 60 16 121/64 97 06/27/21 23:19 36.9 C 62 16 117/74 95 06/27/21 20:45 56 L 129/79 06/27/21 14:59 36.7 C 56 L 16 122/84 92 Pain Intensity Face: Pain Intensity: 4 Mouth: Pain Intensity: 3 Transfer of Care Handoff Completed per policy Notes Mental Status: alert / awake / arousable and participated in evaluation Patient Amnestic to Procedure: Yes Nausea / Vomiting: adequately controlled Pain: adequately controlled Airway Patency, RR, SpO2: stable & adequate BP & HR: stable & adequate Hydration State: stable & adequate Anesthetic Complications: no major complications apparent and Pt Satisfied with anesthetic care
[2021-06-28] MEDS: SODIUM CHLORIDE 0.9% 1000ML 1,000 ML IV SCH (13:43)
[2021-06-28] MEDS: ATORVASTATIN 40 MG TAB PO SCH (20:35)
[2021-06-29] MEDS: AMPICILLIN/SULBACTAM SOD 3,000 MG in 0.9 % SODIUM CHLORIDE 100 ML IV SCH (06:41)
[2021-06-29 07:47] LABS: Hematocrit (blood only) 35.1 % (37-47); Mean Corpuscular Hgb Conc 34.2 g/dL (32-36); Mean Corpuscular Volume 93.6 fL (80-100); Mean Platelet Volume 11.2 fL (7.4-10.4); Platelet Count 256 K/uL (130-400); RDW Coefficient of Variation 11.9 % (11.5-14.5); RDW Standard Deviation 40.7 fL (36.4-46.3); Red Blood Count 3.75 M/uL (4.2-5.4); White Blood Count 14.62 K/uL (4.8-10.8)
[2021-06-29] MEDS: AMIODARONE 200 MG TAB PO SCH (07:55)
[2021-06-29] MEDS: SPIRONOLACTONE/HCTZ 25-25 PO SCH (07:56)
[2021-06-29] MEDS: SERTRALINE HCL 100 MG TABLET PO SCH (07:56)
--- NOTE | 2021-06-29 08:41 | Oral/Maxillofacial Progress Nt ---
Date of Service June 29, 2021 Post Op infection evaluation The infected area is now healing very well. Swelling is gone and the tissue is healing well No drainage is noted. Cultures were reviewed. Infection has responded very well to the antibiotics and the I and D. I requested that the patient continue with massage, heat and wound care. At this time the area is well healed and responded well to treatment. Rx Augmentin 875 x 7 days and Vicodin as needed RTC as scheduled for follow up Assessment & Plan Admission and Anticipated Discharge Date Admission Date: June 26, 2021 Results & Data ([facility]) Vital Signs (Past 12 Hours) Vital Signs Temp Pulse Resp BP Pulse Ox 06/29/21 07:00 36.6 C 58 L 20 104/64 96 06/28/21 22:18 37.1 C 62 16 115/73 93 PG Care Time/CCT Total # of Minutes Spent Total Time Spent with Patient: Total time spent is greater than 50% in coordination of care (as documented) at patient's floor/unit and/or counseling patient: Coding Level of Care Code 54045 Subseq Hosp Care Lvl 1
--- NOTE | 2021-06-29 09:00 | Operative Report ---
PG Post Operative Report Pre & Post Diagnosis Operation Date: 06/28/21 07:15 Pre-Op Diagnosis: Right Jaw Abscess Post-Op Diagnosis: Right Jaw Abscess I identified the patient and participated in the time-out.: Yes Procedure Operation Date: 06/28/21 07:15 Actual Procedures p #29 Incision, Drainage, and Extraction(Not Applicable) - Ezequiel Morgan DMD Surgeon Ezequiel Morgan DMD Finish Patcher none Estimated Blood Loss 3 Findings Consistent with Post-Op Diagnosis Specimens Drainage right jaw infection Anesthesia Type General Complications none Indications acute infection not responding to oral antibiotics Description of Procedure Actual Procedures p Incision and Drainage Submandibular Abscess; Removal of Tooth #29 (Not Applicable) - Ezequiel Morgan DMD Once cleared for surgery general anesthesia was achieved, the eyes were protected by the anesthesia dept criteria. A time out was take for patient ID, antibiotics, equipment and position verification once all agreed the procedure began. Local anesthesia using Marcaine with a vasoconstrictor ( 1.8 ml per site) given into right inferior alveolar nerve A throat pack was placed after the oral cavity was irrigated with saline. Once a surgical level of anesthesia was obtained and the local anesthesia was given time for the blocks the surgery was started. I turned my attention to the infection which was located in the floor of the mouth and submandibular, subperiosteal, retromolar spaces The tongue was slightly elevated and there was also swelling associated with tooth # 29-30 ( see CT scan report) Incision and Drainage Using a 15 blade an incision was made lateral to the alveolar ridge around teeth 27-posterior to # 32 area. Once the incision was made a lot of pus extruded from the site. This drainage was cultured for anaerobic and aerobic bacteria. A curved hemostat was carefully placed into the infected space along the medial side of the lower jaw and into the submental/submandibular and subperiosteal space. Some further drainage was now allowed to escape. I palpated the chin and submandibular area and no further drainage was expressed. The area was irrigated with at least 100 ml of NS solution. I now turned my attention to remove the # 29 tooth. Lower # 29 and hyperplastic tissue distal to tooth # 30 Using the full thick Muco-periosteal flap made on the facial aspect from # 27- 30. The flap was reflected to expose the the subperiosteal space the bone adjacent to # 29. The rogue was used to remove bone, the tooth was removed with a 301 elevator, the mental nerve was intact, there was a large amount of granulation tissue on the apex and some more pus that was expressed. I curetted the granulation tissue inferior to the boarder of the lower jaw and also inspected the screws from the sagittal advancement that I did in the past. The osteotomy site and screws were not effected by the infection. The swollen tissue distal to # 30 was adjusted and now with a 4-0 Vicryl suture the flap was closed. I now inspected the sites to insure all bleeding was controlled. I removed the throat pack and suctioned the throat. A gauze pressure dressings was placed. All instrument and sponge count was correct. the patient was allowed to awake from the anesthesia. Once full awake the anesthesia tube was removed and the patient was taken to the recovery room with all vital sign stable. The patient tolerated the surgery very well. I will follow the patient in my office, Rx and instructions will be given upon discharge. I attest to the content of the Intraoperative Record and any orders documented therein. Any exceptions are noted below.
--- NOTE | 2021-06-29 09:26 | Discharge Summary ---
Date of Service June 29, 2021 Admission HPI Per Admitting Provider Hilda is here for right jaw and neck pain following wisdom tooth extraction. She reports she had root canal of her right lower jaw, tooth #29. The next day she started to feel unwell and Saturday she developed Sat R cheek lump and lip swelling. Went to acute care (couldn't get call back from dentist) and was put on penicillin twice daily. She reports the pain and swelling continue to increase over the weekend and evening. This morning vomiting, and increased pain and presented to the ER. +Chills x1 days, not sure if he has been febrile. Pain at admission 8/10, achy in jaw no radiation without palpation. Denies voice change, difficulty breathing, wheezing. Has not taken any medications this morning, last took Saturday night. Reports she has had an ablation for A. fib which she is in and out of, but believes she is normally with a regular rhythm. Denies other recent illnesses. Case discussed with maxillofacial surgery Dr. Morgan. CT as follows: There is diffuse edema of the soft tissue overlying right aspect of the mandible with focal area of enhancement which could represent abscess formation. Metallic dental hardware within right maxillary first molar which is extending to the right maxillary sinus and associated with its incomplete opacification. Deformity of anterior and lateral wall of the right maxillary sinus also associated with osseous remodeling might represent sequela from prior fracture and chronic sinusitis. Medical History: Reviewed Medications: Reviewed Surgical History: Reviewed Allergies: Reviewed Social History: Reviewed Code Status: Full code, discussed with patient with at bedside. Admission Exam Per Admitting Provider Physical Exam: General: A&Ox3. NAD. Cooperative. HEENT: Right lower jaw and upper right neck zone 2 tender to palpation with overlying swelling. No maxillary tenderness bilaterally, no swelling at the level of the clavicle bilaterally. Unable to assess clavicular adenopathy. Uvula midline. No overt pus seen from the gumline, right lower gum swelling appreciated. Pulm: CTAB A&P. -wheezes, -rales, -rhonchi. Symmetrical chest rise. No increase work of breathing. No respiratory distress. Cardiac: RRR, -mrg. Radial pulses intact and symmetrical. Abdominal: Nontender, nondistended, soft. BS present. Extremities: Prize Coordinator strength, ankle plantarflexion/dorsiflexion, hip flexion 5/5 bilaterally without asymmetry. Radial and PT pulses intact without asymmetry. Sensation to soft touch intact in fingers and toes without asymmetry. Principal Diagnosis Odontogenic infection of tooth #29 Discharge Exam Constitutional WD/WN, vitals as above Eyes PERRL, conjunctivae normal, anicteric sclerae ENMT Mouth / Teeth: 1. s/p I&D and extraction Neck + submandibular swelling (right side, improving) Respiratory normal respiratory effort, lungs clear to auscultation Cardiovascular RRR, no murmur, no edema Heart Sounds: normal S1 and normal S2 Skin no rashes, warm and dry Psychiatric A+Ox3, euthymic affect Discharge Data Allergies Allergy/AdvReac Type Severity Reaction Status Date / Time No Known Drug Allergies Allergy Verified 06/26/21 07:29 Consultations 06/26/21 10:48 ED Decision to Admit Stat 06/26/21 15:20 Consult Otolaryngology (Head and Neck) Routine Procedures Performed Operation Date: 06/28/21 07:15 Actual Procedures p #29 Incision, Drainage, and Extraction(Not Applicable) - Ezequiel Morgan, OMAR Ordered Studies 06/26/21 07:08 CT soft tissue neck w con Stat Hospital Course (1) Odontogenic infection of jaw: (2) Chronic anticoagulation: (3) Hyperlipidemia: (4) Hypertension: (5) Type 2 diabetes mellitus: (6) PAF (paroxysmal atrial fibrillation): Hilda North is a 60-year-old female with a past medical history of paroxy smal atrial fibrillation, hypertension, hyperlipidemia who presents with a odontogenic infection of the right lower jaw following root canal of tooth #29. Case has been discussed with Dr. Morgan, patient is being admitted for antibiotic treatment pending source control. Odontogenic infection, right lower jaw Patient with root canal [place] 5 of tooth #29 and subsequent pain, swelling, and chills CT: There is diffuse edema of the soft tissue overlying right aspect of the mandible with focal area of enhancement which could represent abscess formation. Metallic dental hardware within right maxillary first molar which is extending to the right maxillary sinus and associated with its incomplete opacification. Deformity of anterior and lateral wall of the right maxillary sinus also associated with osseous remodeling might represent sequela from prior fracture and chronic sinusitis. -Continue Unasyn 3 g every 6 hours -- plan to transition to oral on DC Dr. Morgan oromaxillofacial surgery consulted -- I&D performed 8/11 AM - Patient watched x24 hours--remained stable - Discharged on Augmentin per Dr. Morgan and will f/u as outpt Pain control with Tylenol as needed Hyperlipidemia Continuedatorvastatin 80 mg p.o. nightly Hypertension Normotensive at time of admission. Home antihypertensives held pending p otential surgical intervention Aspirin held for I&D Received home Toprol XL 100mg PO BID Remained normotensive post-intervention - Restart all home meds at DC Type 2 diabetes mellitus Home Trulicity held -- restart at [place] Last A1c approximately 8% SSI while admitted PAF (paroxysmal atrial fibrillation) Apixaban held prior to surgical procedure -- continue to hold for 24 hours after surgery, restart at [place] Heparin GTT stopped prior to procedure as well -- plan to restart home apixaban as above Continued home Toprol XL 100mg PO BID Dispo: Home - Self Care Total Time Total Time Spent Total Time Spent (In Minutes): see attending attestation Discharge Plan Discharge Items Patient Disposition: Home - Self-Care Reason For Visit: R JAW ABSCESS Discharge Diagnosis: s/p facial infection Condition on Discharge: Good Activity: Resume your previous activity Bathing: No limitations Exercise/Sports: Gradually increase as tolerated Driving/Machine Use: No limitations Weightbearing: Full weightbearing Non-emergency contact: Surgeon Call non-emergency contact if: your temperature is above 101.5, your wound has increased drainage and your wound pain has increased Follow-up/Referrals: Natan Giraldo MD [Primary Care Provider] - 07/05/21 10:15 am (APPT WITH JESSE CATALAN PA-C) Ezequiel Morgan DMD [Physician] - 07/11/21 2:15 pm Diet: Regular Diet Texture: Easy to Chew Addtl Attending Provider Instructions: You were admitted to [facility] due to an infection of your 29th tooth that was unresponsive to antibiotics as an outpatient. As such, you were evaluated by Oral/Maxillofacial Surgery in your office and it was determined that you needed incision and drainage as well as extraction of the infected tooth. The surgery was done by Dr. Ezequiel Morgan, which you tolerated well. You were given IV antibiotics while admitted and will be discharged on oral Augmentin 875 mg twice daily the next 5 days. Please follow- up with Dr. Ezequiel Morgan as scheduled. Please continue to take all your usual medications and follow-up with your primary care provider to discuss your hospitalization and procedure. If you develop any concerning signs and symptoms, including but not limited to fever, chills, chest pain, palpitations, nausea, vomiting, or any other systemic signs of infection please return to the hospital for emergency evaluation. Addtl Latin American Studies Professor Provider Instructions: ADDITIONAL ACTIVITY RECOMMENDATIONS: * [place] teeth after every meal. It is very important to keep your mouth clean to prevent infection. * Starting tonight rinse with the Peridex as directed then 2 x a day * it is very important to keep well hydrated, this prevents fever and possible dry socket pain SPECIAL CARE INSTRUCTIONS: *It is not uncommon that between day 2-4 that your swelling will be at its worst this is very normal, do not be alarmed. * After 36 hours, apply heat (hot water bottle or heating pad) for the next two days, as often as possible. * Tomorrow start rinsing your mouth with 1/2 teaspoon salt in 8 ounces warm water. This rinse should be used every 4-6 hours. * You may experience slight nausea. To prevent this, never take your medication on an empty stomach. If nauseated, take small sips of shalini jeff until you feel better; then you may start on applesauce and toast. * Some swelling is common. It should gradually decrease within 4-5 days. * A certain amount of bleeding is to be expected. It is often possible to control mild oozing by placing folded gauze over the area and biting down for 30 minutes. If you are unable to control excessive bleeding, call Dr Morgan at [phone] * You may experience some discomfort for a few days. If pain or swelling increases, Call Dr Morgan * Return to the office for a follow up check up on Jul 11 at 2:[email or web address] * If you do not have a follow up appointment please call the office at [phone] and set one up for 10-15 days after your surgery Pending Studies at Discharge: Yes Studies:: pathology and C&S Stand-Alone Forms: [employer] [place], Smoking Cessation Medications and DC Order Prescriptions: Continued metoprolol succinate 100 mg tablet extended release 24 hr 100 mg PO BID Qty: 180 RF: 3 sertraline 50 mg tablet 100 mg PO .COMPLEX Qty: 180 RF: 3 amoxicillin-pot clavulanate 875-125 mg tablet 1 tab PO Q12H Qty: 14 RF: 0 hydrocodone-acetaminophen 5-325 mg tablet 1 tab PO Q4H PRN (Reason: pain) Qty: 14 RF: 0 ondansetron HCl 8 mg tablet 8 mg PO Q8H PRN (Reason: nausea and vomiting) Qty: 10 RF: 0 Eliquis 5 mg tablet 5 mg PO BID Qty: 60 RF: 6 spironolacton-hydrochlorothiaz 25-25 mg tablet 1 tab PO QAM Qty: 90 RF: 3 lisinopril 5 mg tablet 5 mg PO DAILY PRN (Reason: Blood Pressure) RF: 0 amiodarone 200 mg tablet 200 mg PO DAILY Qty: 90 RF: 3 ascorbic acid (vitamin C) 500 mg tablet 500 mg PO QAM RF: 0 aspirin 81 mg Tablet,Delayed Release (Dr/Ec) 81 mg PO HS RF: 0 cholecalciferol (vitamin D3) [Vitamin D3] 25 mcg (1,000 unit) Capsule 50 mcg PO HS RF: 0 magnesium oxide 400 mg magnesium Capsule 400 mg PO HS RF: 0 atorvastatin 80 mg tablet 80 mg PO HS RF: 0 zinc acetate 50 mg (zinc) Capsule 50 mg PO HS RF: 0 vitamin A acetate 10,000 unit Tablet, Sublingual 10,000 unit PO HS RF: 0 Trulicity 1.5 mg/0.5 mL pen injector 1.5 mg subcut SA RF: 0 Discharge Orders: Discharge Order (Routine); Ordered 06/29/21 Ordered By: Ezequiel Morgan Admission Data Admit Date/Time: 06/26/21 12:09 Attending Provider: Scotty Perez Admit Provider: Julian El Primary Care Provider: Natan Giraldo Other Providers: Julian El ; Ezequiel Morgan Other Interventions: Discharge Summary Assessment (RN) Last Done: 06/29/21 11:13 Supervising Physician Co-Signing Physician Notes Patient seen and examined with PGY-2 Dr. Hunt. Agree with history, exam findings, assessment and plan of care as outlined. In brief, Ms North is a 60 year old female with history of HTN, HLD, DM, and pAF admitted with an odontogenic infection following a root canal. Feeling well. Able to eat and chew without significant pain. Does not feel that she needs the pain medication that was ordered. Feels that tylenol is enough for pain at this poitn. Vital signs and nursing notes reviewed. Well appearing. Swelling to the right jaw is now resolved. Labs and imaging reviewed. 1. Odontogenic infectionright lower jaw. s/p I&D with Dr. Morgan. Transition from Unasyn to Augmentin. 2. DM. Holding home trulicity. Sliding scale insulin while admitted but can restart Trulicity at discharge. 3. pAF. Can re-start Eliquis at discharge. 4. HTN. Holding home Lisinopril, metoprolol, spironolactone. 6. Obesity. Likely metabolic syndrome. Trulicity will likely help with weight loss efforts as well. Dispo: Discharge home today. I personally spent 15 minutes discharge planning for this patient. Resident Activity Tracking Resident Involvement: Resident Care Provided Care Provided: Adult Hospital Medicine
[2021-06-29] MEDS: INSULIN ASPART 100 UNITS/ML 3 ML PEN SC SCH (09:36)
== END 2021-06-29 12:29 | disposition home or self-care (01) | DRG 857 ==
LOC: ED 06:47 → SUATTDRO 12:09 → 3W 12:09